=== PATIENT | female | born 1995 | race Caucasian/White ===

== ENCOUNTER 2019-03-26 08:19 | Inpatient (IN) | payer OTHER ==
[2019-03-26] MEDS ORDERED: PROMETHAZINE 25 MG/ML VIAL IV PRN (08:55)
[2019-03-26] MEDS ORDERED: Ringers Lactate 1,000 ML IV PRN (08:55)
[2019-03-26] MEDS ORDERED: METHYLERGONOVINE 0.2MG/ML AMP IM PRN (08:55)
[2019-03-26] MEDS ORDERED: BUTORPHANOL 1 MG/ML INJ IV PRN (08:55)
[2019-03-26] MEDS ORDERED: miSOPROStol 100 MCG TAB VAG SCH ×3 (09:00→21:00)
[2019-03-26] MEDS ORDERED: Ringers Lactate 1,000 ML IV SCH (09:00)
[2019-03-26 09:40] LABS: Basophils % 0.3 % (0-1.3); Hematocrit 39.1 % (36.0-45.0); Lymphocytes % 15.7 % (15.3-44.8); MPV 10.4 fL (7.6-11.3); RBC Red Blood Cell Count 4.59 M/uL (3.86-4.86)
[2019-03-26 09:41] LABS: Urine Appearance CLEAR; Urine Bilirubin NEGATIVE (NEG); Urine Blood NEGATIVE (NEG); Urine Color YELLOW; Urine Glucose NEGATIVE (NEG); Urine Microscopic Reflex NO UMIC; Urine Protein NEGATIVE (NEG); Urine Specific Gravity <=1.005 (1.005-1.030); Urine Urobilinogen 0.2 mg/dL (0.2-1.0); Urine pH 7.5 (5.0-7.0)
[2019-03-26 10:14] VITALS: BMI 42.0
--- NOTE | 2019-03-26 13:55 | PREOPHP ---
Date of Admission: 03/26/2019 23-year-old primigravida, at 39 weeks and 6 days according to best estimates, came in last night with complaint of decreased or absent movement. Ultrasound was performed for 30 minutes and showed no cardiac activity. Patient had normal movement counts every night until then. Had been off ered induction early in the week and declined. Vital signs are all stable. Cervix is 1 to 1.5 cm, 5 0% effaced, vertex is applied. Options discussed including expectant management versus Cytotec for c ervical ripening and labor induction. Numerous family members present. Patient and her have decided to proceed with Cytotec induction. This has been discussed several times in the office and again today. We will start with 50 mcg every 6 hours for a total of 3-4 doses depending upon respons e. She knows that there are risks associated with induction including the possibility for . This has been also discussed numerous times. Patient is beta strep positive. So, we will give pen icillin prophylaxis. Rh positive, immune to rubella. Patient may be request epidural during the pro cedure. She will of course wait and see how she feels. No other significant changes from antepartum evaluation. Family knows that the baby will have to be buried or cremated. They are aware of that situation. Anticipate delivery sometime later today. CUONG/LINDA Voice ID: [id number]
--- NOTE | 2019-03-26 14:01 | PN ---
IV has been started. Cytotec 50 mcg placed intravaginally. Full discussion. We will use 50 mcg q.6 hours for at least 3 doses. She knows she can have IV analgesics higher than the normal range becau se of the intrauterine demise and she knows also that she is allowed to get an epidural once th e process gets more active. She will of course aside that for herself. CUONG/LINDA Voice ID: [id number] Report ID: [id number]
[2019-03-26] MEDS ORDERED: ROPIVACAINE HCL 0.2% 20ML AMP IV ONE (17:42)
[2019-03-26] MEDS ORDERED: FENTANYL CITR 100 MCG/2 ML IV ONE (17:42)
[2019-03-26] MEDS ORDERED: ROPIVACAINE HCL 100 ML IV PRN (17:42)
[2019-03-26] MEDS ORDERED: PENICILLIN G POT 5 MU/100 ML VIAL IV SCH (19:00)
[2019-03-26 21:20] LABS: RPR (Rapid Plasma Reagin) NON-REACT (NON-REACT)
--- NOTE | 2019-03-26 21:24 | PN ---
A second dose of 50 mcg of Cytotec has been inserted. Patient is really not having any contractions to speak of. We will decrease the interval to q.4 hours to try to elicit more uterine activity. Stephanie gibson discussion with patient and family. CUONG/LINDA Voice ID: [id number] Report ID: [id number]
[2019-03-26] MEDS ORDERED: ZOLPIDEM TARTRATE 10 MG TABLET PO PRN (22:40)
[2019-03-26] MEDS ORDERED: ZOLPIDEM TARTRATE 5 MG TABLET ONE (22:42)
[2019-03-26] MEDS ORDERED: PENICILLIN 2.5 MU in NA CHLORIDE 0.9% 100 ML IV SCH (23:00)
[2019-03-27] MEDS ORDERED: OXYTOCIN/LR 20 UNIT/1,000 ML BAG IV SCH ×2 (04:00→16:00)
[2019-03-27] MEDS ORDERED: OXYTOCIN/LR 20 UNIT/1,000 ML BAG IV ONE (04:09)
[2019-03-27] MEDS ORDERED: ROPIVACAINE HCL 0 ML ONE (08:30)
[2019-03-27] MEDS ORDERED: FENTANYL CITR 100 MCG/2 ML IV ONE (08:46)
[2019-03-27] MEDS ORDERED: METHYLERGONOVINE 0.2MG/ML AMP IM ONE (13:07)
[2019-03-27] MEDS ORDERED: LIDOCAINE 1% MPF 30 ML VIAL ONE (13:08)
[2019-03-27] MEDS ORDERED: Oxycodone HCl/Acetaminophen 1 TAB TAB PO PRN (15:41)
[2019-03-27] MEDS ORDERED: ACETAMINOPHEN 500 MG TAB PO PRN (15:41)
[2019-03-27] MEDS ORDERED: DIPHENHYDRAMINE 25 MG TAB/CAP PO PRN (15:41)
[2019-03-27] MEDS ORDERED: DOCUSATE NA/SENNA CONC 1 TAB PO PRN (15:41)
[2019-03-27] MEDS ORDERED: IBUPROFEN 200 MG TAB PO PRN (15:41)
[2019-03-27] MEDS ORDERED: BISACODYL 10 MG RECTAL SUPP RECT PRN (15:41)
[2019-03-27] MEDS: Oxycodone HCl/Acetaminophen 1 TAB TAB PO PRN (17:38)
[2019-03-27] MEDS ORDERED: ZOLPIDEM TARTRATE 10 MG TABLET PO PRN (21:22)
--- NOTE | 2019-03-28 00:59 | OP ---
Surgeon: Chet Cortez MD A 23-year-old primigravida at 40 weeks by best estimates was diagnosed with intrauterine demise , came in Thursday morning for Cytotec after thorough discussion. RH positive. Immune to Rubella. Positive beta strep screen. Had a total of 4 doses of Cytotec and then Pitocin was started. This mo rning rupture of membranes was performed. Patient went to a more active labor. She received Stadol initially IV and then requested and received epidural anesthesia which gave good effect in the remain manuel of labor and delivery. Second stage of about 20-25 minutes. Spontaneous vaginal delivery of an estimated 8 pound plus female, tight nuchal cord, stillborn. Repair of small first-degree laceration just inside the introitus with 2-0 chromic approximately 4 stitches running locked. Jorge nieto of the placenta, which was noted to be intact, calcified, but otherwise normal. Patient was given at least 2 doses of penicillin during the labor as she was beta strep positive and we wanted to make sure she does not develop endometriosis. Final Diagnoses: Intrauterine gestation, 40 weeks, stillborn diagnosed prior to admission. Cytotec for cervical ripening. Labor induction. Vaginal delivery. Epidural anesthesia. Tight nuchal cord as the most probable cause for stillborn. NBC/MODL Voice ID: [id number] Report ID: [id number]
--- NOTE | 2019-03-28 02:18 | OP ---
Surgeon: Chet Cortez MD A 23-year-old primigravida at 40 weeks by best estimate. Patient reported no activity to her m other who came in yesterday and was diagnosed with intrauterine demise, that was yesterday morn ing. DICTATION ENDS HERE CUONG/LINDA Voice ID: [id number] Report ID: [id number]
[2019-03-28] MEDS: Oxycodone HCl/Acetaminophen 1 TAB TAB PO PRN (08:42)
[2019-03-28 08:49] VITALS: BP 134/74; TEMP 97.7
--- NOTE | 2019-03-28 15:42 | PN ---
Intrauterine demise at 39 weeks according to day study, 40 weeks according to the first ultraso und. The patient has had Cytotec inserted according to family rupture of membranes occurred spontane ously this morning around 6 a.m. The patient is now 3 cm, 70% to 80% effaced, vertex, -1 station. S he has had 3 doses of Stadol, but is alert. We will give her another dose at her request. The patie nt will probably choose epidural anesthesia, but at this point is still using the breathing technique s to best advantage. She is beta strep positive and is on antibiotics at this point. This is more t o prevent any type of endometritis in patient since she have a nonviable . Anticipate more rap id progress from this point forward. CUONG/LINDA Voice ID: [id number] Report ID: [id number]
--- NOTE | 2019-03-29 05:36 | DS ---
Date of Discharge: 03/28/2019 A 23-year-old primigravida, noted to have intrauterine demise prior to admission. Cytotec for cervical ripening followed by labor induction, vaginal delivery of an estimated 8 pounds plus female. Nuchal cord tightly x1, first-degree laceration repaired with 2-0 chromic for running lock stitches , epidural anesthesia. Schultze delivery of the placenta, which was inspected and noted to be calcif ied, but otherwise intact and normal. Penicillin prophylaxis during the labor at least 2-3 times. P ostpartum afebrile, ambulating and voiding. Lochia is normal. She will be dismissed later this morn ing to report back to my office in 6 weeks for followup, to report any temperature elevation of 100 d egrees or greater, severe pain, heavy bleeding, or any other type of abnormalities. She is given tra madol at her request for cramping. Final Diagnoses: 40 weeks at the time of delivery of intrauterine stillborn female. Epidural anesth esia. Tight nuchal cord. Penicillin prophylaxis. CUONG/LINDA Voice ID: [id number] Report ID: [id number]
[2019-03-30 05:29] LABS: HBsAG Nonreactive (Nonreactive)
== END 2019-03-28 11:50 | disposition home or self-care (01) | DRG 807 ==
LOC: L&D 08:19 → 2ND-WC 08:24
PROVIDERS: ADMIT Specialist; ATTEND Specialist
PROC: 3E0P7VZ Introduction of Hormone into Female Reproductive, Via Natural or Artificial Opening (ICD-10-PCS; 2019-03-26)
PROC: 10E0XZZ Delivery of Products of Conception, External Approach (ICD-10-PCS; principal; 2019-03-27)
PROC: 0HQ9XZZ Repair Perineum Skin, External Approach (ICD-10-PCS; 2019-03-27)
DX: O36.4XX0 Maternal care for intrauterine death, not applicable or unspecified (principal); Z37.1 Single stillbirth; O69.81X0 Labor and delivery complicated by cord around neck, without compression, not applicable or unspecified; O99.824 Streptococcus B carrier state complicating childbirth; O70.0 First degree perineal laceration during delivery; Z3A.40 40 weeks gestation of pregnancy
CPT/HCPCS: 36415; 76819; 81003; 85025; 86592; 86901; 87340; 88307; J0595; J2210; J2550; J2590; J3010; J7120

== ENCOUNTER 2019-10-16 15:52 | Inpatient (IN) | payer OTHER, SELFPAY ==
[2019-10-16] MEDS ORDERED: ONDANSETRON 4 MG/2 ML VIAL ONE (16:18)
[2019-10-16] MEDS ORDERED: NA CHLORIDE 0.9% 1,000 ML ONE (16:19)
[2019-10-16 16:53] LABS: Absolute Lymphocytes (CBC) 1.1 K/uL (0.7-4.9); Basophils % 0.1 % (0-1.3); Hematocrit 42.6 % (36.0-45.0); Lymphocytes % 5.6 % (15.3-44.8); MPV 9.8 fL (7.6-11.3); RBC Red Blood Cell Count 5.06 M/uL (3.86-4.86)
[2019-10-16 16:54] LABS: Urine Specific Gravity 1.015 (1.005-1.030)
[2019-10-16 16:54] LABS: Urine Blood 1+ (NEG); Urine Glucose NEGATIVE (NEG); Urine Protein 3+ (NEG); Urine Specific Gravity 1.015 (1.005-1.030); Urine pH 5.5 (5.0-7.0)
[2019-10-16 16:57] LABS: Potassium 3.4 mmol/L (3.5-5.1)
--- NOTE | 2019-10-16 17:01 | RAD REPORT ---
EXAM DESCRIPTION: CT - Abdomen Pelvis W Contrast - 10/16/2019 4:45 pm CLINICAL HISTORY: Abdominal pain COMPARISON: none. TECHNIQUE: Computed axial tomography of the abdomen pelvis was obtained. 100 cc Isovue-300 was admin istered intravenously. Oral contrast was not requested which limits evaluation of bowel. All CT scans are performed using dose optimization technique as appropriate and may include automated exposure control or mA/KV adjustment according to patient size. FINDINGS: Moderate small low-density areas are scattered throughout the right kidney reaching the pe riphery. Mild small low-density areas are present within the left kidney reaching the periphery. The liver, spleen, pancreas, and adrenals appear unremarkable. There is no evidence of diverticulitis. Normal appendix 4 x 2 centimeter fluid collection right pelvis abuts the superior aspect of the uterus IMPRESSION: Moderate right and mild left pyelonephritis 4 x 2 centimeter fluid collection are right pelvis probably fluid within unopacified small bowel. Rig ht hydrosalpinx or complex right adnexal mass considered less likely. This can be re-evaluated with a non emergent pelvic ultrasound
--- NOTE | 2019-10-16 17:19 | EDPHYS ---
Physician Documentation [facility] Name: Sue Ponce Age: 23 yrs Sex: Female : 1995 Arrival Date: 10/16/2019 Time: 15:55 Bed 2 Private MD: ED Physician Claudio Suggs HPI: 10/15 16:17 This 23 yrs old Female presents to ER via Ambulatory with complaints of kb Fever, Vomiting. 16:17 The patient presents with abdominal pain right lower quadrant. Onset: The kb symptoms/episode began/occurred 4 day(s) ago. The symptoms do not radiate. Associated signs and symptoms: Pertinent positives: nausea and vomiting, fever. The symptoms are described as constant. Modifying factors: The symptoms are alleviated by nothing, the symptoms are aggravated by movement. Severity of pain: At its worst the pain was severe yesterday, in the emergency department the pain has improved moderately. The patient has not experienced similar symptoms in the past. The patient has not recently seen a physician. Pt reports fever and vomiting for 4 days, unable to tolerate anything by mouth. States she has had RLQ pain as well that was the worst yesterday and now it is very mild. Reports any movement would cause pain to abd yesterday. . 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 - Social history:: Smoking status: Patient denies any tobacco usage or history of. ROS: 16:16 ENT: Negative for injury, pain, and discharge, Neck: Negative for injury, pain, and kb swelling, Cardiovascular: Negative for chest pain, palpitations, and edema, Respiratory: Negative for shortness of breath, cough, wheezing, and pleuritic chest pain, Back: Negative for injury and pain, : Negative for injury, bleeding, discharge, and swelling, MS/Extremity: Negative for injury and deformity, Skin: Negative for injury, rash, and discoloration, Neuro: Negative for headache, weakness, numbness, tingling, and seizure. 16:16 Constitutional: Positive for fever, Negative for body aches, chills, fatigue, malaise, poor PO intake, weight loss. 16:16 Abdomen/GI: Positive for abdominal pain, nausea and vomiting, Negative for diarrhea, constipation, abdominal cramps, abdominal distension, anorexia. Exam: 16:16 Constitutional: This is a well developed, well nourished patient who is awake, alert, kb and in no acute distress. Head/Face: Normocephalic, atraumatic. Neck: Trachea midline, no thyromegaly or masses palpated, and no cervical lymphadenopathy. Supple, full range of motion without nuchal rigidity, or vertebral point tenderness. No Meningismus. Chest/axilla: Normal chest wall appearance and motion. Nontender with no deformity. No lesions are appreciated. Cardiovascular: Tachycardic rate, Regular rhythm with a normal S1 and S2. No gallops, murmurs, or rubs. Normal PMI, no JVD. No pulse deficits. Respiratory: Lungs have equal breath sounds bilaterally, clear to auscultation and percussion. No rales, rhonchi or wheezes noted. No increased work of breathing, no retractions or nasal flaring. Back: No spinal tenderness. No costovertebral tenderness. Full range of motion. Skin: Warm, dry with normal turgor. Normal color with no rashes, no lesions, and no evidence of cellulitis. MS/ Extremity: Pulses equal, no cyanosis. Neurovascular intact. Full, normal range of motion. Neuro: Awake and alert, GCS 15, oriented to person, place, time, and situation. Cranial nerves II-XII grossly intact. Motor strength 5/5 in all extremities. Sensory grossly intact. Cerebellar exam normal. Normal gait. 16:16 Abdomen/GI: Inspection: obese Bowel sounds: normal, in all quadrants, Palpation: soft, in all quadrants, mild abdominal tenderness, in the right lower quadrant. Vital Signs: 15:58 BP 145 / 105; Pulse 156; Resp 22 S; Temp 99.8(O); Pulse Ox 100% on R/A; aa5 17:00 BP 121 / 86; Pulse 113; Resp 16 S; Pulse Ox 98% on R/A; ca1 18:00 BP 124 / 83; Pulse 98; Resp 18 S; Temp 99.4(O); Pulse Ox 98% on R/A; ca1 19:12 BP 134 / 78; Pulse 86; Resp 16 S; Pulse Ox 96% on R/A; ca1 19:41 BP 125 / 76; Pulse 88; Resp 18 S; Pulse Ox 98% on R/A; ca1 MDM: 16:01 Patient medically screened. kb 16:15 Data reviewed: vital signs, nurses notes. Data interpreted: Pulse oximetry: on room air kb is 100 %. Interpretation: normal. 17:12 Counseling: I had a detailed discussion with the patient and/or guardian regarding: the kb historical points, exam findings, and any diagnostic results supporting the discharge/admit diagnosis, lab results, radiology results, the need for further work-up and treatment in the hospital. 17:17 Physician consultation: Prince Jai ALLAN was contacted at 17:17, regarding admission, kb to the medical/surgical unit. patient's condition, and will see patient in ED, shortly, wants zosyn instead of rocephin. 10/15 16:02 Order name: Basic Metabolic Panel; Complete Time: 16:58 kb 10/15 16:02 Order name: CBC with Diff; Complete Time: 16:57 kb 10/15 16:37 Order name: Urine Dipstick--Ancillary (enter results); Complete Time: 16:55 tt3 10/15 16:38 Order name: Urine --Ancillary (enter results); Complete Time: 16:55 tt3 10/15 17:05 Order name: Urine Microscopic Only 10/15 17:06 Order name: Urine Microscopic Only; Complete Time: 17:37 EDMS 10/15 16:02 Order name: CT Abd/Pelvis - IV Contrast Only; Complete Time: 17:03 kb 10/15 17:08 Order name: Urine Culture 10/15 17:15 Order name: Blood Culture Adult (2) 10/15 17:15 Order name: Lactate; Complete Time: 18:17 kb 10/15 17:15 Order name: Procalcitonin; Complete Time: 18:36 kb 10/15 16:02 Order name: IV Saline Lock; Complete Time: 16:37 kb 10/15 16:02 Order name: Labs collected and sent; Complete Time: 16:37 kb 10/15 16:02 Order name: Urine Dipstick-Ancillary (obtain specimen); Complete Time: 16:37 kb Administered Medications: 16:35 Drug: NS 0.9% 1000 ml Route: IV; Rate: 1000 ml; Site: right antecubital; ca1 17:50 Follow up: Response: No adverse reaction; IV Status: Completed infusion ca1 16:36 Drug: Zofran (Ondansetron) 4 mg Route: IVP; Site: right antecubital; ca1 17:15 Follow up: Response: No adverse reaction; Nausea is decreased; Vomiting decreased ca1 17:15 CANCELLED (Physician Discretion): Rocephin 1 grams IV at calculated rate once; Given kb slow IV push per pharmacy instructions 17:54 Drug: Zosyn 3.375 grams Route: IVPB; Infused Over: 60 mins; Site: right antecubital; ca1 19:13 Follow up: Response: No adverse reaction; IV Status: Completed infusion ca1 Disposition: 10/16 07:19 Co-signature as Attending Physician, Claudio Suggs MD. rn Disposition: 10/16/19 17:18 Hospitalization ordered by Prince Jai for Observation. Preliminary diagnosis are Acute tubulo-interstitial nephritis - bilateral, Elevated white blood cell count, Dehydration. - Bed requested for Telemetry/MedSurg (observation). - Status is Observation. mg2 - Condition is Stable. - Problem is new. - Symptoms are unchanged. Signatures: Dispatcher [employer] EDNV Laila Sellers, JAS-C OPTIONS TRADER-Ckb Claudio Suggs MD MD rn Calderon, Audri, RN RN aa5 Uli Saenz RN RN mg2 Penelope Vinsno RN RN ca1 Gilmer, Freddy tt3 Corrections: (The following items were deleted from the chart) 10/15 17:15 17:05 Rocephin 1 grams IV at calculated rate once; Given slow IV push per pharmacy kb instructions ordered. kb 18:46 17:18 Hospitalization Ordered by Prince Jai ALLAN for Observation. Preliminary tt3 diagnosis is Acute tubulo-interstitial nephritis - bilateral; Elevated white blood cell count; Dehydration. Bed requested for Telemetry/MedSurg (observation). Status is Observation. Condition is Stable. Problem is new. Symptoms are unchanged. kb 20:10 18:46 10/16/2019 17:18 Hospitalization Ordered by Prince Jai ALLAN for Observation. mg2 Preliminary diagnosis is Acute tubulo-interstitial nephritis - bilateral; Elevated white blood cell count; Dehydration. Bed requested for Telemetry/MedSurg (observation). Status is Observation. Condition is Stable. Problem is new. Symptoms are unchanged. tt3
--- NOTE | 2019-10-16 17:19 | ER ---
Nurse's Notes [facility] Name: Sue Ponce Age: 23 yrs Sex: Female : 1995 Arrival Date: 10/16/2019 Time: 15:55 Bed 2 Private MD: Diagnosis: Acute tubulo-interstitial nephritis-bilateral;Elevated white blood cell count;Dehydration Presentation: 10/15 15:58 Chief complaint: Patient states: RLQ pain, nausea, vomiting, and fever up to 100.9F aa5 that began 4 days ago. 15:58 Coronavirus screen: Patient denies a cough. Patient denies shortness of breath or aa5 difficulty breathing. Patient reports a measured and/or subjective temperature greater than 100.4F. Patient denies travel on a cruise ship or to a country the [facility] [place] currently [place] as an affected area. Patient denies contact with known and/or suspected case of COVID-19. Ebola Screen: Patient negative for fever greater than or equal to 101.5 degrees Fahrenheit, and additional compatible Ebola Virus Disease symptoms. Risk Assessment: Do you want to hurt yourself or someone else? Patient reports no desire to harm self or others. Onset of symptoms was September 2019. 15:58 Acuity: CINDY 2 aa5 15:58 Method Of Arrival: Ambulatory aa5 15:58 Initial Sepsis Screen: Does the patient meet any 2 criteria? RR > 20 per min. HR > 90 aa5 bpm. Yes Does the patient have a suspected source of infection? Yes:. 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 - Social history:: Smoking status: Patient denies any tobacco usage or history of. Screenin:02 Abuse screen: Denies threats or abuse. Denies injuries from another. Nutritional ca1 screening: No deficits noted. Tuberculosis screening: No symptoms or risk factors identified. Fall Risk IV access (20 points). Assessment: 16:02 General: Appears in no apparent distress. comfortable, Behavior is calm, cooperative, ca1 appropriate for age. General: Reports fever for > 3 days. Pain: Complains of pain in right lower quadrant Pain currently is 6 out of 10 on a pain scale. Pain began 2-3 days ago. Is intermittent. Neuro: Level of Consciousness is awake, alert, obeys commands, Oriented to person, place, time, situation, Appropriate for age. Cardiovascular: Heart tones S1 S2 present. Respiratory: Airway is patent Respiratory effort is even, unlabored, Respiratory pattern is regular, symmetrical, Breath sounds are clear bilaterally. GI: Abdomen is round non-distended, Bowel sounds present X 4 quads. Abd is soft and non tender X 4 quads. Reports nausea, vomiting. : No signs and/or symptoms were reported regarding the genitourinary system. EENT: No signs and/or symptoms were reported regarding the EENT system. Derm: Skin is intact, is healthy with good turgor, Skin is pink, warm \T\ dry. Musculoskeletal: Circulation, motion, and sensation intact. Capillary refill < 3 seconds. 16:37 Reassessment: PT to CT. ca1 17:00 Reassessment: Patient appears in no apparent distress at this time. Patient and/or ca1 family updated on plan of care and expected duration. Pain level reassessed. Patient is alert, oriented x 3, equal unlabored respirations, skin warm/dry/pink. 18:00 Reassessment: Patient appears in no apparent distress at this time. Patient and/or ca1 family updated on plan of care and expected duration. Pain level reassessed. Patient is alert, oriented x 3, equal unlabored respirations, skin warm/dry/pink. 19:05 Reassessment: Patient appears in no apparent distress at this time. Patient and/or ca1 family updated on plan of care and expected duration. Pain level reassessed. Patient is alert, oriented x 3, equal unlabored respirations, skin warm/dry/pink. 19:41 Reassessment: Patient appears in no apparent distress at this time. Patient is alert, ca1 oriented x 3, equal unlabored respirations, skin warm/dry/pink. Vital Signs: 15:58 BP 145 / 105; Pulse 156; Resp 22 S; Temp 99.8(O); Pulse Ox 100% on R/A; aa5 17:00 BP 121 / 86; Pulse 113; Resp 16 S; Pulse Ox 98% on R/A; ca1 18:00 BP 124 / 83; Pulse 98; Resp 18 S; Temp 99.4(O); Pulse Ox 98% on R/A; ca1 19:12 BP 134 / 78; Pulse 86; Resp 16 S; Pulse Ox 96% on R/A; ca1 19:41 BP 125 / 76; Pulse 88; Resp 18 S; Pulse Ox 98% on R/A; ca1 ED Course: 15:55 Patient arrived in ED. as 15:57 Laila Sellers FNP-C [facility]. kb 15:57 Claudio Suggs MD is Attending Physician. kb 15:57 Arm band placed on. aa5 16:02 Patient has correct armband on for positive identification. Placed in gown. Bed in low ca1 position. Call light in reach. Side rails up X 1. Pulse ox on. NIBP on. Warm blanket given. 16:03 Triage completed. aa5 16:07 Penelope Vinson, FELICITY is Primary Nurse. ca1 16:34 No provider procedures requiring assistance completed. Initial lab(s) drawn, by ks, ca1 sent to lab. Urine collected: clean catch specimen, clear. Inserted saline lock: 20 gauge in right antecubital area, using aseptic technique. Blood collected. 16:44 CT completed. Patient tolerated procedure well. Patient moved back from CT. bq 16:46 CT Abd/Pelvis - IV Contrast Only In Process Unspecified. EDMS 17:18 Prince Vergara MD is Hospitalizing Provider. kb 17:53 Inserted saline lock: 20 gauge in left antecubital area, using aseptic technique. Blood eb collected. 17:54 Procalcitonin Sent. eb 17:54 Lactate Sent. eb 17:54 Blood Culture Adult (2) Sent. eb 17:54 Urine Culture Sent. eb 17:55 Urine Microscopic Only Sent. eb 19:41 Patient admitted, IV remains in place. ca1 Administered Medications: 16:35 Drug: NS 0.9% 1000 ml Route: IV; Rate: 1000 ml; Site: right antecubital; ca1 17:50 Follow up: Response: No adverse reaction; IV Status: Completed infusion ca1 16:36 Drug: Zofran (Ondansetron) 4 mg Route: IVP; Site: right antecubital; ca1 17:15 Follow up: Response: No adverse reaction; Nausea is decreased; Vomiting decreased ca1 17:15 CANCELLED (Physician Discretion): Rocephin 1 grams IV at calculated rate once; Given kb slow IV push per pharmacy instructions 17:54 Drug: Zosyn 3.375 grams Route: IVPB; Infused Over: 60 mins; Site: right antecubital; ca1 19:13 Follow up: Response: No adverse reaction; IV Status: Completed infusion ca1 Outcome: 17:18 Decision to Hospitalize by Provider. kb 19:42 Admitted to Med/surg accompanied by tech, via wheelchair, room 228, with chart, Report ca1 called to FELICITY Brewer 19:42 Condition: stable 19:42 Instructed on the need for admit. 20:10 Patient left the ED. mg2 Signatures: Dispatcher [employer] EDMS Laila Sellers, VESSEL TRAFFIC OFFICER-C VESSEL TRAFFIC OFFICER-CkLesly Goncalves Amelia as Calderon, Audri, RN RN aa5 Rosy Bellamy Michele, RN RN mg2 Penelope Vinson RN RN ca1
[2019-10-16 17:34] LABS: Urine Bacteria 20-50 /HPF (<20); Urine Culture Reflex Order NOT NEEDED
--- NOTE | 2019-10-16 17:45 | P.HP ---
Certification for Inpatient Patient admitted to: Inpatient With expected LOS: >2 Midnights Practitioner: I am a practitioner with admitting privileges, knowledge of patient current condition, hospital course, and medical plan of care. Services: Services provided to patient in accordance with Admission requirements found in Title 42 Section 412.3 of the Code of Federal Regulations Patient History Date of Service: 10/16/19 Reason for admission: abdominal pain History of Present Illness: Patient is 23 year old female who presents to the ER with a 4-day history of daily fever spikes, vomiting and right lower quadrant abdominal. She was found to have bilateral pyelonephritis on CT scan. In addition, there was also pelvic fluid. She has a hx of vaginal delivery 7 months ago. Unfortunately, the baby due to complications related to . Otherwise, patient is generally healthy without chronic co-morbidities. She is not taking any medications at home. Allergies No Known Allergies Allergy (Unverified 03/15/19 16:46) Home Medications: Pnv Cmb#95/Ferrous Fumarate/FA [ Tablet] 1 each PO DAILY 03/26/19 Tramadol HCl [Ultram] 50 mg PO Q4HR #15 tablet 03/28/19 - Social History Alcohol use: No CD- Drugs: No Caffeine use: Yes Review of Systems 10-point ROS is otherwise unremarkable Physical Examination - Physical Exam General: Alert, In no apparent distress, Cooperative, Obese HEENT: Atraumatic, Normocephalic, EOMI Neck: Supple Respiratory: Clear to auscultation bilaterally, Normal air movement Cardiovascular: No edema, Normal pulses, Regular rate/rhythm, Normal S1 S2 Musculoskeletal: No clubbing, No swelling, No contractures, No erythema, No tenderness, No warmth Integumentary: No rashes, No breakdown, No significant lesion, No tenderness/swelling, No erythema, No warmth, No cyanosis Neurological: Normal speech, Sensation intact, Normal affect - Studies Laboratory Data (last 24 hrs) 10/16/19 16:34: WBC 19.6 H, Hgb 14.5, Hct 42.6, Plt Count 223 10/16/19 16:34: Sodium 135 L, Potassium 3.4 L, BUN 15, Creatinine 1.13, Glucose 127 H Assessment and Plan - Problems (Diagnosis) (1) Sepsis Current Visit: Yes Status: Acute (2) Pyelonephritis Current Visit: Yes Status: Acute (3) Pelvic fluid collection Current Visit: Yes Status: Acute - Plan Assessment A generally healthy 23 year old female admitted with sepsis secondary to pyelonephritis. CT A/P also captured pelvic fluid collection Sepsis Bilateral pyelonephritis Pelvic fluid collection PLAN: Admit inpatient Start zosyn and LR Pelvic ultrasound Follow up urine and blood cultures PRN zofran for nausea OK for clear liquid diet if tolerated - Advance Directives Does patient have a Living Will: No Does patient have a Durable POA for Healthcare: No
[2019-10-16] MEDS ORDERED: PIPER/TAZO/NS 3.375gm 3.375 GM/100 ML BAG ONE (17:54)
[2019-10-16] MEDS ORDERED: ONDANSETRON 4 MG/2 ML VIAL IV PRN (19:45)
[2019-10-16] MEDS: PIPER/TAZO/NS 3.375gm 3.375 GM/100 ML BAG IVPB SCH (19:45)
[2019-10-16] MEDS ORDERED: POTASSIUM CL 40 MEQ in NA CHLORIDE 0.9% 500 ML IV SCH (19:45)
[2019-10-16 20:20] VITALS: O2SAT 98
[2019-10-16 20:28] VITALS: BMI 36.4
[2019-10-16] MEDS ORDERED: TRAMADOL HCL 50 MG TAB PO SCH (21:00)
[2019-10-16] MEDS ORDERED: HYDROCODONE/APAP 7.5/325 MG TAB PO PRN (21:16)
[2019-10-16] MEDS ORDERED: NA CHLORIDE 0.9% 250 ML ONE (21:25)
[2019-10-16] MEDS: Ringers Lactate 1,000 ML IV SCH (21:30)
[2019-10-16] MEDS: KCL 20 MEQ/100 mL IVPB 20 MEQ/100 ML BAG IV SCH (21:30)
[2019-10-16] MEDS ORDERED: TRAMADOL HCL 50 MG TAB PO PRN (21:46)
[2019-10-17] MEDS ORDERED: PIPERACIL/TAZO 3.375 GM VIAL IV ONE (00:55)
[2019-10-17] MEDS: KCL 20 MEQ/100 mL IVPB 20 MEQ/100 ML BAG IV SCH (00:57)
[2019-10-17] MEDS ORDERED: NA CHLORIDE 0.9% 100 ML ONE (00:58)
[2019-10-17] MEDS ORDERED: NA CHLORIDE 0.9% 250 ML ONE (00:59)
[2019-10-17] MEDS ORDERED: PIPER/TAZO/NS 3.375gm 3.375 GM/100 ML BAG ONE (04:41)
[2019-10-17] MEDS: Ringers Lactate 1,000 ML IV SCH ×2 (05:17→11:45)
[2019-10-17] MEDS: PIPER/TAZO/NS 3.375gm 3.375 GM/100 ML BAG IVPB SCH ×2 (05:18)
[2019-10-17 05:51] LABS: Magnesium 2.3 mg/dL (1.8-2.4); Potassium 3.7 mmol/L (3.5-5.1)
[2019-10-17 06:18] LABS: Absolute Lymphocytes (CBC) 2.1 K/uL (0.7-4.9); Basophils % 0.3 % (0-1.3); Hematocrit 35.5 % (36.0-45.0); Lymphocytes % 18.5 % (15.3-44.8); MPV 9.7 fL (7.6-11.3); RBC Red Blood Cell Count 4.17 M/uL (3.86-4.86)
--- NOTE | 2019-10-17 07:36 | RAD REPORT ---
EXAM DESCRIPTION: US - Pelvis Complete - 10/17/2019 7:12 am CLINICAL HISTORY: Pelvic fluid COMPARISON: Abdomen Pelvis W Contrast dated 10/16/2019 TECHNIQUE: Transabdominal pelvic sonography was performed. FINDINGS: Transabdominal sonography shows normal sized uterus with no endometrial or myometrial abno rmality. No blood or abnormal fluid collection in the cul de sac. Both ovaries are identified and nor mal in size. Doppler evaluation shows normal blood flow in the ovarian stroma. Follicles are seen in each ovary. No abnormal fluid collections seen. The CT finding is believed to be summation effect of normal size fluid-filled small bowel loops abutting an isodense right ovary. No worrisome pelvic fluid collection is suspected after review of the CT study and evaluation of this ultrasound. IMPRESSION: Uterus and both ovaries show no suspicious findings. No abnormal fluid collections seen. Collective ultrasound and CT findings a not considered suspicious for an abnormal pelvic fluid collection.
[2019-10-17 08:39] VITALS: TEMP 97.6
[2019-10-17 11:00] LABS: Anisocytosis 1+; Blood Morphology Comment NOTED (NOT SEEN); Platelet Estimate ADEQ
[2019-10-17] MEDS ORDERED: PIPER/TAZO/NS 3.375gm 3.375 GM/100 ML BAG IVPB SCH (11:00)
[2019-10-17 12:09] VITALS: BP 127/60
--- NOTE | 2019-10-17 12:48 | P.DS ---
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 Mild small low-density areas are present within the left kidney reaching the periphery. The liver, spleen, pancreas, and adrenals appear unremarkable. There is no evidence of diverticulitis. Normal appendix 4 x 2 centimeter fluid collection right pelvis abuts the superior aspect of the uterus IMPRESSION: Moderate right and mild left pyelonephritis 4 x 2 centimeter fluid collection are right pelvis probably fluid within unopacified small bowel. Right hydrosalpinx or complex right adnexal mass considered less likely. This can be re-evaluated with a non emergent pelvic ultrasound Pelvic US: FINDINGS: Transabdominal sonography shows normal sized uterus with no endometrial or myometrial abnormality. No blood or abnormal fluid collection in the cul de sac. Both ovaries are identified and normal in size. Doppler evaluation shows normal blood flow in the ovarian stroma. Follicles are seen in each ovary. No abnormal fluid collections seen. The CT finding is believed to be summation effect of normal size fluid-filled small bowel loops abutting an isodense right ovary. No worrisome pelvic fluid collection is suspected after review of the CT study and evaluation of this ultrasound. IMPRESSION: Uterus and both ovaries show no suspicious findings. No abnormal fluid collections seen. Collective ultrasound and CT findings a not considered suspicious for an abnormal pelvic fluid collection. Medical problem list: Bilateral pyelonephritis Brief History of Present Illness: 23-year-old female presented to the emergency room with fever and right flank pain. Patient found to have bilateral pyelonephritis. Patient admitted for IV fluids and antibiotic therapy. Hospital Course: Patient presented with bilateral pyelonephritis. This was confirmed on CT scan. There was some question of fluid collection on CT scan. Pelvic ultrasound showed no indication of this. The patient was started on IV antibiotic therapy and fluids. Urine culture was positive for Gram negative rods. Patient responded well to antibiotics and IV fluids. No evidence of sepsis noted as pro calcitonin and lactic acid within normal range. At discharge she is without any nausea, vomiting or abdominal pain. No fever noted. Patient has tolerated her diet. At discharge patient will continue with Bactrim DS 1 pill twice daily for 14 days. A limited supply of tramadol 50 mg 1 pill twice daily as needed for pain will be provided. Recommend to recheck urine culture after that time to monitor resolution. Patient will need to establish care with a PCP within 1 week to follow up this hospitalization. Urine culture is pending at discharge. This can be followed up with her PCP or gynecology. Education on pyelonephritis and UTI prevention will be provided. Vital Signs/Physical Exam: Temp Pulse Resp BP Pulse Ox 97.6 F 75 18 127/60 96 10/17/19 08:00 10/17/19 12:00 10/17/19 12:00 10/17/19 12:00 10/17/19 12:00 General: Alert, In no apparent distress, Oriented x3, Cooperative HEENT: Atraumatic Neck: Supple Respiratory: Clear to auscultation bilaterally, Normal air movement Cardiovascular: Normal pulses, Regular rate/rhythm Gastrointestinal: Normal bowel sounds, Soft and benign, Non-distended, No tenderness, No masses, No rebound, No guarding Musculoskeletal: No erythema, No tenderness, No warmth Integumentary: No tenderness/swelling, No erythema, No warmth, No cyanosis Neurological: Normal speech, Normal strength at 5/5 x4 extr, Normal tone, Normal affect Laboratory Data at Discharge: WBC 11.1 K/uL (4.3-10.9) H D 10/17/19 05:24 Hgb 11.7 g/dL (12.0-15.0) L D 10/17/19 05:24 Hct 35.5 % (36.0-45.0) L D 10/17/19 05:24 Plt Count 185 K/uL (152-406) 10/17/19 05:24 Sodium 139 mmol/L (136-145) 10/17/19 05:24 Potassium 3.7 mmol/L (3.5-5.1) 10/17/19 05:24 BUN 11 mg/dL (7-18) 10/17/19 05:24 Creatinine 0.91 mg/dL (0.55-1.3) 10/17/19 05:24 Glucose 93 mg/dL (74-106) 10/17/19 05:24 Magnesium 2.3 mg/dL (1.8-2.4) 10/17/19 05:24 Home Medications: Smz./Tmp. [Bactrim Ds 800 MG/160 MG] 1 tab PO BID #28 tab 10/17/19 traMADol HCL [Ultram*] 50 mg PO BID PRN #10 tab 10/17/19 New Medications: Smz./Tmp. [Bactrim Ds 800 MG/160 MG] 1 tab PO BID #28 tab traMADol HCL [Ultram*] 50 mg PO BID PRN #10 tab PRN Reason: Pain Scale 5-7 (Moderate) Patient Discharge Instructions: 1. Recommend follow up with PCP to establish care and follow up this hospitalization. 2. Patient presented with bilateral pyelonephritis. This was confirmed on CT scan. There was some question of fluid collection on CT scan. Pelvic ultrasound showed no indication of this. The patient was started on IV antibiotic therapy and fluids. Urine culture was positive for Gram negative rods. Patient responded well to antibiotics and IV fluids. No evidence of sepsis noted as pro calcitonin and lactic acid within normal range. At discharge she is without any nausea, vomiting or abdominal pain. No fever noted. Patient has tolerated her diet. At discharge patient will continue with Bactrim DS 1 pill twice daily for 14 days. A limited supply of tramadol 50 mg 1 pill twice daily as needed for pain will be provided. Recommend to recheck urine culture after that time to monitor resolution. Patient will need to establish care with a PCP within 1 week to follow up this hospitalization. Urine culture is pending at discharge. This can be followed up with her PCP or gynecology. Education on pyelonephritis and UTI prevention will be provided. Diet: Regular Activity: Ad joe Time spent managing pt's care (in minutes): 55
== END 2019-10-17 14:15 | disposition home or self-care (01) | DRG 690 ==
LOC: ER 15:52 → ERHOLD 17:26 → 2ND 19:40
PROVIDERS: ADMIT Internal Medicine; ATTEND Family Medicine
DX: N12 Tubulo-interstitial nephritis, not specified as acute or chronic (principal); Z16.29 Resistance to other single specified antibiotic; B96.20 Unspecified Escherichia coli [E. coli] as the cause of diseases classified elsewhere; E66.9 Obesity, unspecified; Z79.899 Other long term (current) drug therapy; Z68.36 Body mass index [BMI] 36.0-36.9, adult
CPT/HCPCS: 36415; 74177; 76856; 80048; 81003; 81015; 81025; 83605; 83735; 84145; 85025; 87040; 87077; 87086; 87088; 87186; 96361; 96365; 96375; 99285; J2405; J2543; J7030; J7040; J7120; Q9967

== ENCOUNTER 2020-12-09 14:44 | Inpatient (IN) | payer OTHER ==
[2020-12-09] MEDS: PENICILLIN 2.5 MU in NA CHLORIDE 0.9% 100 ML IV SCH (09:00)
[~2020-12-09 14:44] MED LIST: BUTORPHANOL 1 MG/ML INJ IV PRN; CARBOPROST TROME 250 MCG/ML IM PRN; METHYLERGONOVINE 0.2MG/ML AMP IM PRN; PENICILLIN 5 MU in NA CHLORIDE 0.9% 100 ML IV ONE; PROMETHAZINE INJ 25 MG/ML AMP IM PRN; Ringers Lactate 1,000 ML IV PRN; miSOPROStoL 100 MCG TAB VAG PRN
[2020-12-09] MEDS ORDERED: OXYTOCIN/LR 20 UNIT/1,000 ML BAG IV SCH (15:00)
[2020-12-09] MEDS ORDERED: Ringers Lactate 1,000 ML IV SCH (15:00)
[2020-12-09] MEDS ORDERED: PENICILLIN G POT 5 MU/100 ML IVPB IV SCH (15:00)
[2020-12-09 16:05] LABS: Urine Appearance CLEAR (Clear); Urine Bilirubin NEGATIVE (Negative); Urine Blood NEGATIVE (Negative); Urine Color YELLOW (Yellow); Urine Glucose TRACE (Negative); Urine Protein NEGATIVE (Negative); Urine Specific Gravity <=1.005 (1.005-1.030); Urine Urobilinogen 0.2 mg/dL (0.2-1.0)
[2020-12-09 16:08] LABS: Absolute Lymphocytes (CBC) 2.6 K/uL (0.7-4.9); Basophils % 0.2 % (0-1.3); Hematocrit 37.7 % (36.0-45.0); Lymphocytes % 16.8 % (15.3-44.8); MPV 10.1 fL (7.6-11.3)
[2020-12-09 16:11] VITALS: BMI 39.6
[2020-12-09 16:39] LABS: Urine Microscopic Reflex NO UMIC
--- NOTE | 2020-12-09 19:26 | PREOPHP ---
Date of Admission: 12/09/2020 History Of Present Illness: Sue Pike is a 24-year-old 2, para 0, first pregnan cy still born at approximately 40 weeks. The patient is now 39 weeks. We have discussed on numerous occasions induction. At this point, she wishes to proceed. Cytotec has been discussed, including r isk of side effects. The patient chose to wait for spontaneous labor on her first , which r esulted in stillborn at approximately 40 weeks. Family History: Father with hypertension. Mother with stomach ulcers. Father with diabetes. Fathe r with melanoma. Past Medical History: The patient has had anxiety problems in the past. Past Surgical History: No previous surgeries. Allergies: NO ALLERGIES. Medications: vitamins prior to admission. Social History: Does not smoke. Physical Examination: HEENT: Clear. Pupils equal, round, reactive to light and accommodation. Conjunctivae well perfused . No oral, lingual, buccal lesions. Chest and Lungs: Clear. Heart: Without murmurs, thrills, heaves, or rubs. Breasts: Without masses on previous visits. Abdomen: Term size. Baby is vertex, still at -1 to -2 station. Cervix is posterior, 1.5 to 2 cm, 5 0% effaced. Assessment And Plan: 50 mcg of Cytotec inserted. Six hours from now, we will decide whether to inse rt another 50 mcg, 25 mcg, or none depending upon what the situation is at that point. The plan is u p to 3 doses of Cytotec for ripening and induction tomorrow. Of course if the patient goes into good labor tonight, we may not need Pitocin. Full discussion on several visits prior to admission. CUONG/LINDA Voice ID: [id number]
[2020-12-10] MEDS: PENICILLIN 2.5 MU in NA CHLORIDE 0.9% 100 ML IV SCH (04:49)
[2020-12-10] MEDS ORDERED: FENTANYL CITR 100 MCG/2 ML IV ONE (05:47)
[2020-12-10] MEDS ORDERED: 0.2% ROPIVACAINE (200 MG/100 ML) BAG EP ONE (05:47)
[2020-12-10] MEDS ORDERED: ROPIVACAINE HCL 0.2% 20ML AMP EP ONE (05:48)
[2020-12-10] MEDS ORDERED: EPHEDRINE SULF 50 MG/ML VIAL IV STA (07:55)
--- NOTE | 2020-12-10 07:57 | PN ---
The patient has received 1 dose of Stadol at 3-4 cm, requested epidural anesthesia which has been acc omplished now. Patient is very comfortable. She is 4-1/2, rupture of membranes, clear fluid. After rupture membranes and had became better applied, she is now 5 cm, still about 60% effaced. Fluid wa s clear. She has had 1 dose of penicillin. Anticipate more rapid progress from this point. CUONG/LINDA Voice ID: [id number] Report ID: [id number]
[2020-12-10] MEDS ORDERED: EPINEPHrine 1 MG/10 ML SYR ONE (08:23)
--- NOTE | 2020-12-10 08:33 | PN ---
The patient is very comfortable. In fact, she cannot feel anything even she is having contractions. She can move her legs. We will adjust epidural as necessary when it comes time to push. She is now about 6 cm, almost 80% effaced. Baby is much better applied. I think we are getting ready to make more rapid progress. CUONG/LINDA Voice ID: [id number] Report ID: [id number]
[2020-12-10] MEDS ORDERED: METHYLERGONOVINE 0.2MG/ML AMP IM ONE (09:14)
[2020-12-10] MEDS ORDERED: BISACODYL 10 MG RECTAL SUPP RC PRN (10:37)
[2020-12-10] MEDS ORDERED: DOCUSATE NA/SENNA CONC 1 TAB PO PRN (10:37)
[2020-12-10] MEDS ORDERED: Oxycodone HCl/Acetaminophen 1 TAB TAB PO PRN ×2 (10:37)
[2020-12-10] MEDS ORDERED: DIPHENHYDRAMINE 25 MG TAB/CAP PO PRN (10:37)
[2020-12-10] MEDS ORDERED: ACETAMINOPHEN 500 MG TAB PO PRN (10:37)
[2020-12-10] MEDS ORDERED: OXYTOCIN/LR 20 UNIT/1,000 ML BAG IV SCH (11:00)
--- NOTE | 2020-12-10 19:54 | OP ---
Surgeon: Chet Cortez MD Sue Pike is a 24-year-old 2, para 0. First stillborn at approximatel y 40 weeks. The patient is 39 weeks, had Cytotec inserted last night and every 6 hours, went to a ry active labor, had Stadol IV, Phenergan IM x1, at 4 cm, requested and received epidural anesthesia, which gave excellent results during her rest of labor and delivery. Second stage of about 20 to 25 minutes. Spontaneous vaginal delivery of a 7 pounds 11 ounces male , Apgars 9 and 9, had cord around the shoulders and neck as in a harness, no problems. No episiotomy. No laceration. Schultze delivery of the placenta, was inspected and noted to be intact and normal. 300 cc or less blood los s. Rh positive. Immune to Rubella. Positive strep. The patient received 2 doses of penicillin dur ing the labor. Tolerated all procedures well. Final Diagnoses: Term intrauterine at 39 weeks, previous history of stillborn. Cytotec fo r labor induction. Vaginal delivery. Epidural anesthesia. Penicillin prophylaxis. JUAN AC/MODL Voice ID: [id number] Report ID: [id number]
[2020-12-10] MEDS: IBUPROFEN 600 MG TAB PO PRN (21:42)
[2020-12-10 23:26] LABS: RPR (Rapid Plasma Reagin) NON-REACT (NON-REACT)
[2020-12-11] MEDS: IBUPROFEN 600 MG TAB PO PRN (07:32)
[2020-12-11 07:55] VITALS: BP 122/61; TEMP 97
--- NOTE | 2020-12-11 22:58 | DS ---
Date of Discharge: 12/11/2020 Hospital Course: Sue Pike is a 24-year-old 2, para 0, history of full-term sti llborn 39 weeks, Cytotec was inserted that evening and during the night. Next day, she was in active labor. Rupture of membranes at approximately 4 cm. The patient went rapidly to complete. Second s tage of about 20 minutes. Spontaneous vaginal delivery of a 7 pounds 11 ounces male infant, Apgars 9 and 9. Shoulder type harness cord, but no signs of any problems with the baby. Schultze delivery o f the placenta. Estimated blood loss 300 cc or less. Penicillin prophylaxis x2 during the labor. T he patient is Rh positive, immune to rubella, negative COVID. ; afebrile, ambulating, and voiding. Lochia is normal. She will be dismissed later today to report back to my office in 6 weeks for followup to report any temperature elevation of 100 degrees or greater, severe pain, heavy bleed ing, or any other type of abnormalities. We will take Motrin for any discomfort she has. Back is a little sore from the epidural, otherwise no complaints or problems. Tdap again offered as it was off ered during the and again today. Final Diagnoses: Intrauterine gestation 39 weeks, Cytotec insertion 39 weeks 1 day, vaginal delivery , epidural anesthesia, penicillin prophylaxis, Tdap offered. CUONG/LINDA Voice ID: [id number] Report ID: [id number]
[2020-12-12 13:09] LABS: HBsAG Nonreactive (Nonreactive)
== END 2020-12-11 12:45 | disposition home health service (06) | DRG 807 ==
LOC: 2ND-WC 14:44
PROVIDERS: ADMIT Specialist; ATTEND Specialist
PROC: 10E0XZZ Delivery of Products of Conception, External Approach (ICD-10-PCS; principal; 2020-12-10)
PROC: 3E0DXGC Introduction of Other Therapeutic Substance into Mouth and Pharynx, External Approach (ICD-10-PCS; 2020-12-10)
PROC: 10907ZC Drainage of Amniotic Fluid, Therapeutic from Products of Conception, Via Natural or Artificial Opening (ICD-10-PCS; 2020-12-10)
DX: O99.824 Streptococcus B carrier state complicating childbirth (principal); Z37.0 Single live birth; Z3A.39 39 weeks gestation of pregnancy
CPT/HCPCS: 36415; 81003; 85025; 86592; 86901; 87340; J0171; J0595; J2210; J2540; J2550; J2590; J2795; J3010; J7120; U0003

== ENCOUNTER 2021-09-07 20:38 | Emergency (ER) | payer OTHER ==
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
[2021-09-08 07:02] VITALS: BP 126/60; TEMP 98.2; O2SAT 99
== END 2021-09-07 21:34 | disposition home or self-care (01) ==
LOC: ER 20:38
DX: M54.50 Low back pain, unspecified (principal); M62.830 Muscle spasm of back; V43.62XA Car passenger injured in collision with other type car in traffic accident, initial encounter; Y93.89 Activity, other specified; Y92.414 Local residential or business street as the place of occurrence of the external cause
CPT/HCPCS: 99281

== ENCOUNTER 2022-02-15 23:14 | Emergency (ER) | payer OTHER, SELFPAY ==
[2022-02-15] MEDS ORDERED: ONDANSETRON 4 MG (ODT) TAB ONE (23:39)
[2022-02-16 00:35] LABS: Urine Blood Negative (Negative); Urine Glucose Negative (Negative); Urine Protein 1+ (Negative)
[2022-02-16] MEDS ORDERED: ONDANSETRON 4 MG/2 ML VIAL ONE (00:41)
[2022-02-16] MEDS ORDERED: MORPHINE 4 MG/ML SYR ONE (00:41)
[2022-02-16] MEDS ORDERED: NA CHLORIDE 0.9% 1,000 ML ONE ×2 (00:42→02:43)
[2022-02-16] MEDS ORDERED: FAMOTIDINE 20 MG/2 ML VIAL IV ONE (00:42)
[2022-02-16 00:52] LABS: Hematocrit 39.3 % (36.0-45.0); Lymphocytes % 3.8 % (15.3-44.8); MCV 84.4 fL (80-100); MPV 9.5 fL (7.6-11.3); RBC Red Blood Cell Count 4.65 M/uL (3.86-4.86)
[2022-02-16 01:05] LABS: Urine Bacteria <20 /HPF (<20); Urine Mucus Slight /HPF (None Seen); Urine RBC <5 /HPF (None Seen)
[2022-02-16 01:11] LABS: Bilirubin Total 0.9 mg/dL (0.2-1.0); Potassium 3.9 mmol/L (3.5-5.1); Protein, Total 7.7 g/dL (6.4-8.2)
[2022-02-16 01:57] LABS: Blood Morphology Comment NOTED (NOT SEEN); Hypochromasia 1+; Platelet Estimate ADEQ; Stomatocytes 1+
--- NOTE | 2022-02-16 03:33 | EDPHYS ---
Physician Documentation [facility] Name: Sue Pike Age: 26 yrs Sex: Female : 1995 Arrival Date: 02/15/2022 Time: 23:18 Bed 16 Private MD: TY Physician Orlando Marion HPI: 02/16 02:29 This 26 yrs old Female presents to ER via Ambulatory with complaints of deon Vomiting, Abdominal Pain. 02:29 The patient presents to the emergency department with nausea, that is mild, that is deon moderate, vomiting, that is continuous. Onset: The symptoms/episode began/occurred yesterday. Possible causes: unknown. The symptoms are aggravated by nothing. The symptoms are alleviated by nothing. Associated signs and symptoms: The patient has no apparent associated signs or symptoms, Pertinent positives: abdominal pain. Severity of symptoms: At their worst the symptoms were mild moderate in the emergency department the symptoms are unchanged. Historical: - Allergies: 02/15 23:27 No Known Allergies; hb - Immunization history:: Adult Immunizations up to date. - Social history:: Smoking status: Patient denies any tobacco usage or history of. - Family history:: not pertinent. ROS: 02/16 02:29 Constitutional: Negative for fever, chills, and weight loss, Eyes: Negative for injury, deon pain, redness, and discharge, ENT: Negative for injury, pain, and discharge, Neck: Negative for injury, pain, and swelling, Cardiovascular: Negative for chest pain, palpitations, and edema, Respiratory: Negative for shortness of breath, cough, wheezing, and pleuritic chest pain, Back: Negative for injury and pain, : Negative for injury, bleeding, discharge, and swelling, MS/Extremity: Negative for injury and deformity, Skin: Negative for injury, rash, and discoloration, Neuro: Negative for headache, weakness, numbness, tingling, and seizure, Psych: Negative for depression, anxiety, suicide ideation, homicidal ideation, and hallucinations, Allergy/Immunology: Negative for hives, rash, and allergies, Endocrine: Negative for neck swelling, polydipsia, polyuria, polyphagia, and marked weight changes, Hematologic/Lymphatic: Negative for swollen nodes, abnormal bleeding, and unusual bruising. Abdomen/GI: Positive for abdominal pain, nausea and vomiting, of the umbilical area. Exam: 02:29 Constitutional: This is a well developed, well nourished patient who is awake, alert, deon and in no acute distress. Head/Face: Normocephalic, atraumatic. Eyes: Pupils equal round and reactive to light, extra-ocular motions intact. Lids and lashes normal. Conjunctiva and sclera are non-icteric and not injected. Cornea within normal limits. Periorbital areas with no swelling, redness, or edema. ENT: Nares patent. No nasal discharge, no septal abnormalities noted. Tympanic membranes are normal and external auditory canals are clear. Oropharynx with no redness, swelling, or masses, exudates, or evidence of obstruction, uvula midline. Mucous membranes moist. Neck: Trachea midline, no thyromegaly or masses palpated, and no cervical lymphadenopathy. Supple, full range of motion without nuchal rigidity, or vertebral point tenderness. No Meningismus. Chest/axilla: Normal chest wall appearance and motion. Nontender with no deformity. No lesions are appreciated. Cardiovascular: Regular rate and rhythm with a normal S1 and S2. No gallops, murmurs, or rubs. Normal PMI, no JVD. No pulse deficits. Respiratory: Lungs have equal breath sounds bilaterally, clear to auscultation and percussion. No rales, rhonchi or wheezes noted. No increased work of breathing, no retractions or nasal flaring. Back: No spinal tenderness. No costovertebral tenderness. Full range of motion. Skin: Warm, dry with normal turgor. Normal color with no rashes, no lesions, and no evidence of cellulitis. MS/ Extremity: Pulses equal, no cyanosis. Neurovascular intact. Full, normal range of motion. Neuro: Awake and alert, GCS 15, oriented to person, place, time, and situation. Cranial nerves II-XII grossly intact. Motor strength 5/5 in all extremities. Sensory grossly intact. Cerebellar exam normal. Normal gait. Psych: Awake, alert, with orientation to person, place and time. Behavior, mood, and affect are within normal limits. Vital Signs: 02/15 23:26 BP 139 / 87; Pulse 85; Resp 18; Temp 98.3(O); Pulse Ox 100% on R/A; Weight 81.65 kg; hb Height 5 ft. 3 in. (160.02 cm); Pain 10/10; 02/16 04:15 BP 129 / 84; Pulse 83; Resp 17 S; Pulse Ox 100% on R/A; lg3 02/15 23:26 Body Mass Index 31.89 (81.65 kg, 160.02 cm) hb MDM: 00:18 [facility] 02[facility]33 Differential diagnosis: Nonspecific abd pain, gastritis, cholecystitis, pancreatitis, deon appendicitis, diverticulitis, viral gastroenteritis, gastroenteritis. Data reviewed: vital signs, nurses notes, lab test result(s), radiologic studies, CT scan. Data interpreted: site monitor: rate is 85 beats/min, rhythm is regular, Pulse oximetry: on room air is 100 %. Counseling: I had a detailed discussion with the patient and/or guardian regarding: the historical points, exam findings, and any diagnostic results supporting the discharge/admit diagnosis, lab results, radiology results. 02/16 00:21 Order name: CBC with Diff; Complete Time: 02:29 [facility] 02/16 00:21 Order name: CMP; Complete Time: 02:29 [facility] 02/16 00:21 Order name: Lipase; Complete Time: 02:29 [facility] 02/16 00:21 Order name: Urine Microscopic Only; Complete Time: 02:29 [facility] 02/16 00:35 Order name: Urine --Ancillary (enter results); Complete Time: 02:29 [facility] 02/16 00:35 Order name: Urine Dipstick-Ancillary; Complete Time: 02:29 [facility] 02/16 00:21 Order name: Abdomen Limited [facility] 02/16 00:32 Order name: CT Abd/Pelvis - IV Contrast Only [facility] 02/16 00:57 Order name: Manual Differential; Complete Time: 02:29 [facility] 02/16 00:21 Order name: IV Saline Lock; Complete Time: 00:44 [facility] 02/16 00:21 Order name: Labs collected and sent; Complete Time: 00:44 [facility] 02/16 00:21 Order name: Urine Dipstick-Ancillary (obtain specimen); Complete Time: 00:35 [facility] 02/16 00:21 Order name: Urine Test (obtain specimen); Complete Time: 00:35 [facility] Administered Medications: 02/15 23:30 Drug: Zofran (Ondansetron) 4 mg Route: PO; 02/16 00:44 Follow up: Response: No change in condition; Vomiting unchanged tw5 00:44 Drug: Pepcid (famotidine) 20 mg Route: IVP; Site: left antecubital; as6 01:25 Follow up: Response: No adverse reaction tw5 00:45 Drug: NS 0.9% 1000 ml Route: IV; Rate: 1 bolus; Site: left antecubital; as6 01:25 Follow up: Response: No adverse reaction; IV Status: Completed infusion; IV Intake: tw5 1000ml 02:35 Follow up: Response: No adverse reaction; IV Status: Completed infusion; IV Intake: lg3 1000ml 00:45 Drug: Zofran (Ondansetron) 4 mg Route: IVP; Site: left antecubital; as6 01:25 Follow up: Response: No adverse reaction; Marked relief of symptoms; Nausea is decreasedtw5 00:45 Drug: morphine 4 mg Route: IVP; Infused Over: 4 mins; Site: left antecubital; as6 01:25 Follow up: Response: No adverse reaction; Marked relief of symptoms tw5 02:36 Drug: NS 0.9% 1000 ml Route: IV; Rate: 1 bolus; Site: left antecubital; lg3 04:14 Follow up: Response: No adverse reaction; IV Status: Completed infusion; IV Intake: lg3 1000ml 04:14 Drug: Zofran (Ondansetron) 4 mg Route: PO; lg3 04:14 Follow up: Response: No adverse reaction; Marked relief of symptoms lg3 Disposition Summary: 02/16/22 03:32 Discharge Ordered Location: Home deon Problem: new deon Symptoms: have improved deon Condition: Stable deon Diagnosis - Vomiting deon - Elevated white blood cell count, unspecified deon - Bandemia deon - Abdominal tenderness deon Followup: deon - With: Private Physician - When: 1 - 2 days - Reason: Recheck today's complaints, Continuance of care, Re-evaluation by your physician Discharge Instructions: - Discharge Summary Sheet deon - Abdominal Pain, Adult deon - Abdominal Pain, Adult, [id number] deon - Appendicitis, Adult, [id number] deon Forms: - Medication Reconciliation Form deon - Thank You Letter deon - Antibiotic Education deon - Prescription Opioid Use deon Prescriptions: - Zofran 4 mg Oral Tablet - take 1 tablet by ORAL route every 12 hours As needed; 20 tablet; Refills: 0, deon Product Selection Permitted Signatures: Dispatcher [employer] Orlando Antonio MD MD cha Baxter, Heather, RN RN Clarissa Wolf RN RN lg3 Jeff Rowley, RN RN as6 Nubia Singh 5
--- NOTE | 2022-02-16 03:33 | ER ---
Nurse's Notes [facility] Name: Sue Pike Age: 26 yrs Sex: Female : 1995 Arrival Date: 02/15/2022 Time: 23:18 Bed 16 Private MD: Diagnosis: Vomiting;Elevated white blood cell count, unspecified;Bandemia;Abdominal tenderness Presentation: 02/15 23:26 Chief complaint: Upper abdominal pain and vomiting since this morning. Not tolerating hb fluids. Actively vomiting in triage. Coronavirus screen: Client presents with at least one sign or symptom that may indicate coronavirus-19. Standard/surgical mask placed on the client. Provider contacted for isolation considerations. Ebola Screen: No symptoms or risks identified at this time. Risk Assessment: Do you want to hurt yourself or someone else? Patient reports no desire to harm self or others. Onset of symptoms was February 15, 2022. 23:26 Method Of Arrival: Ambulatory 23:26 Acuity: CINDY 3 hb 02/16 00:45 Initial Sepsis Screen: Does the patient meet any 2 criteria? No. Patient's initial as6 sepsis screen is negative. Does the patient have a suspected source of infection? No. Patient's initial sepsis screen is negative. Triage Assessment: 02/15 23:27 General: Appears in no apparent distress. ill, Behavior is calm, cooperative. Pain: hb Pain currently is 10 out of 10 on a pain scale. EENT: No signs and/or symptoms were reported regarding the EENT system. Neuro: Level of Consciousness is awake, alert, obeys commands, Oriented to person, place, time, situation. Cardiovascular: Patient's skin is warm and dry. Respiratory: Respiratory effort is even, unlabored, Respiratory pattern is regular, symmetrical. GI: Reports upper abdominal pain, intolerance of fluids, nausea, vomiting. : No signs and/or symptoms were reported regarding the genitourinary system. Derm: Skin is pink, warm \T\ dry. Musculoskeletal: No signs and/or symptoms reported regarding the musculoskeletal system. Historical: - Allergies: 23:27 No Known Allergies; hb - Immunization history:: Adult Immunizations up to date. - Social history:: Smoking status: Patient denies any tobacco usage or history of. - Family history:: not pertinent. Screenin/18 00:41 Abuse screen: Denies threats or abuse. Denies injuries from another. Nutritional tw5 screening: No deficits noted. Tuberculosis screening: No symptoms or risk factors identified. Fall Risk None identified. Assessment: 00:41 General: Appears in no apparent distress. uncomfortable, Behavior is calm, cooperative. tw5 Pain: Complains of pain in abdomen Pain currently is 7 out of 10 on a pain scale. Noted to be guarding, resistant to movement, Also complains of nausea. Neuro: No deficits noted. Level of Consciousness is awake, alert, obeys commands, Oriented to person, place, time, situation. Cardiovascular: No deficits noted. Denies chest pain, shortness of breath, Capillary refill < 3 seconds Clubbing of nail beds is absent JVD is absent Patient's skin is warm and dry. Respiratory: No deficits noted. Airway is patent Trachea midline Respiratory effort is even, unlabored, Respiratory pattern is regular, symmetrical, Breath sounds are clear bilaterally. GI: Abdomen is round non-distended, Pt is actively vomiting bile, Bowel sounds present X 4 quads. Reports lower abdominal pain, upper abdominal pain, bloating, cramping, intolerance of fluids, intolerance of food, nausea, vomiting. : No deficits noted. No signs and/or symptoms were reported regarding the genitourinary system. EENT: No deficits noted. No signs and/or symptoms were reported regarding the EENT system. Derm: No deficits noted. No signs and/or symptoms reported regarding the dermatologic system. Skin is intact, is healthy with good turgor, Skin is dry, Skin is normal, Skin temperature is warm. Musculoskeletal: No deficits noted. No signs and/or symptoms reported regarding the musculoskeletal system. Circulation, motion, and sensation intact. Range of motion: intact in all extremities. 01:35 Reassessment: Patient appears in no apparent distress at this time. No changes from tw5 previously documented assessment. Patient and/or family updated on plan of care and expected duration. Pain level reassessed. Patient is alert, oriented x 3, equal unlabored respirations, skin warm/dry/pink. Patient states symptoms have improved. 02:36 Reassessment: Patient appears in no apparent distress at this time. No changes from lg3 previously documented assessment. Patient and/or family updated on plan of care and expected duration. Pain level reassessed. Patient is alert, oriented x 3, equal unlabored respirations, skin warm/dry/pink. Patient states symptoms have improved. 04:14 Reassessment: Patient appears in no apparent distress at this time. No changes from lg3 previously documented assessment. Patient and/or family updated on plan of care and expected duration. Pain level reassessed. Patient is alert, oriented x 3, equal unlabored respirations, skin warm/dry/pink. Patient denies pain at this time. Patient states feeling better. Patient states symptoms have improved. Vital Signs: 02/15 23:26 BP 139 / 87; Pulse 85; Resp 18; Temp 98.3(O); Pulse Ox 100% on R/A; Weight 81.65 kg; hb Height 5 ft. 3 in. (160.02 cm); Pain 10/10; 02/16 04:15 BP 129 / 84; Pulse 83; Resp 17 S; Pulse Ox 100% on R/A; lg3 02/15 23:26 Body Mass Index 31.89 (81.65 kg, 160.02 cm) hb ED Course: 02/15 23:18 Patient arrived in ED. bp1 23:27 Triage completed. hb 23:27 Arm band placed on. hb 02/16 00:18 Orlando Marion MD is Attending Physician. [place] 00:23 Nubia Singh is Primary Nurse. tw5 00:36 Urine Microscopic Only Sent. tw5 00:40 Inserted saline lock: 18 gauge in left antecubital area, using aseptic technique. Blood as6 collected. 00:41 Patient has correct armband on for positive identification. Placed in gown. Bed in low tw5 position. Call light in reach. Side rails up X 1. Client placed on continuous cardiac and pulse oximetry monitoring. NIBP monitoring applied. Door closed. Noise minimized. Warm blanket given. 01:05 Abdomen Limited US In Process Unspecified. EDMS 02:28 CT Abd/Pelvis - IV Contrast Only In Process Unspecified. EDMS 04:15 No provider procedures requiring assistance completed. IV discontinued, intact, lg3 bleeding controlled, No redness/swelling at site. Pressure dressing applied. Administered Medications: 02/15 23:30 Drug: Zofran (Ondansetron) 4 mg Route: PO; hb 02/16 00:44 Follow up: Response: No change in condition; Vomiting unchanged tw5 00:44 Drug: Pepcid (famotidine) 20 mg Route: IVP; Site: left antecubital; as6 01:25 Follow up: Response: No adverse reaction tw5 00:45 Drug: NS 0.9% 1000 ml Route: IV; Rate: 1 bolus; Site: left antecubital; as6 01:25 Follow up: Response: No adverse reaction; IV Status: Completed infusion; IV Intake: tw5 1000ml 02:35 Follow up: Response: No adverse reaction; IV Status: Completed infusion; IV Intake: lg3 1000ml 00:45 Drug: Zofran (Ondansetron) 4 mg Route: IVP; Site: left antecubital; as6 01:25 Follow up: Response: No adverse reaction; Marked relief of symptoms; Nausea is decreasedtw5 00:45 Drug: morphine 4 mg Route: IVP; Infused Over: 4 mins; Site: left antecubital; as6 01:25 Follow up: Response: No adverse reaction; Marked relief of symptoms tw5 02:36 Drug: NS 0.9% 1000 ml Route: IV; Rate: 1 bolus; Site: left antecubital; lg3 04:14 Follow up: Response: No adverse reaction; IV Status: Completed infusion; IV Intake: lg3 1000ml 04:14 Drug: Zofran (Ondansetron) 4 mg Route: PO; lg3 04:14 Follow up: Response: No adverse reaction; Marked relief of symptoms lg3 Medication: 04:16 VIS not applicable for this client. lg3 Intake: 01:25 IV: 1000ml; Total: 1000ml. tw5 02:35 IV: 1000ml; Total: 2000ml. lg3 04:14 IV: 1000ml; Total: 3000ml. lg3 Outcome: 03:32 Discharge ordered by . deon 04:15 Discharged to home ambulatory, with significant other. lg3 04:15 Condition: stable 04:15 Discharge instructions given to patient, significant other, Instructed on discharge instructions, follow up and referral plans. medication usage, Demonstrated understanding of instructions, follow-up care, medications, Prescriptions given X 1. 04:16 Patient left the ED. lg3 Signatures: Dispatcher [employer] EDSD Orlando Marion MD MD cha Baxter, Heather, RN RN hb Gibson, Lacie, RN RN lg3 Savanna Aguilar, Nubia tw5 Jeff Rowley, RN RN as6 Corrections: (The following items were deleted from the chart) 02/15 23:30 23:26 Chief complaint: Upper abdominal pain and vomiting since this morning. Not hb tolerating fluids. hb
[2022-02-16] MEDS ORDERED: ONDANSETRON 4 MG (ODT) TAB ONE (04:15)
--- NOTE | 2022-02-17 13:07 | RAD REPORT ---
EXAM DESCRIPTION: US - Abdomen Exam Limited - 02/16/2022 1:04 am CLINICAL HISTORY: 26 years, Female, ABD PAIN COMPARISON: None. TECHNIQUE: Utilizing a curved array transducer, real-time ultrasound evaluation of the abdominal vis cera was performed. Color Doppler imaging was used to assess vascular flow. FINDINGS: The liver was limited in evaluation. The gallbladder demonstrate to be within normal limits. No gallbladder stones were seen. No peric holecystic fluid and or wall thickening was identified. The common bile duct measures 2.1 mm. No intra or extrahepatic biliary duct dilatation was identified. The pancreas, right kidney was not evaluated. The abdominal aorta and/or retroperitoneum was not imag ed. IMPRESSION: No acute abnormalities. Electronically signed by: Mark Moore MD 02/16/2022 1:25 AM CDT Due to temporary technical issues with the PACS/Fluency reporting system, reports are being signed by the in house radiologists without review as a courtesy to insure prompt reporting. The interpreting radiologist is fully responsible for the content of the report.
--- NOTE | 2022-02-17 13:10 | RAD REPORT ---
EXAM DESCRIPTION: CT - Abdomen Pelvis W Contrast - 02/16/2022 2:26 am CLINICAL HISTORY: 26 years, Female, Abdominal pain, acute, nonlocalized COMPARISON: 10/16/2019 TECHNIQUE: Contrast-enhanced images of the abdomen and pelvis were performed utilizing 5 mm slice th ickness at 5 mm interval reconstruction from the lung bases to the ischial tuberosities after the adm inistration of IV contrast . In addition multiplanar reformats in the coronal and sagittal plane were obtained and reviewed. This exam was performed according to our departmental dose-optimization protocol, which includes auto mated exposure control, adjustment of the mA and/or kV according to patient size and/or use of iterat ariel reconstruction technique. FINDINGS: The lung bases demonstrate to be clear. The liver, gallbladder, pancreas, spleen and adrenal glands demonstrate to be unremarkable, no focal lesions are noted. The kidneys demonstrate normal uptake of contrast media. No evidence for nephrolithiasis and/or hydro nephrosis. Grossly the unopacified stomach, small bowel and large bowel demonstrate to be within normal limits. There is no evidence for bowel dilatation/or free air there is findings suggesting most likely subo ptimal distention of the hepatic flexure less likely mucosal thickening is considered. The appendix demonstrate the presence of a appendicolith with no evidence for significant dilatation/or inflammat ory changes. The urinary bladder demonstrate to be unremarkable. The uterus demonstrate to be unremarkable. Prev ious described tubular structure within the right adnexal area is no longer visualized and correspond most likely to small bowel. The aorta demonstrate to be normal. There is no retroperitoneal lymp hadenopathy. There is no ascites. The rest of the soft tissue and bony structures are within normal l imits. IMPRESSION: No acute intra-abdominal process. Appendicolith without evidence for significant dilatation and/or inflammatory changes. Electronically signed by: Mark Moore MD 02/16/2022 2:58 AM CDT Due to temporary technical issues with the PACS/Fluency reporting system, reports are being signed by the in house radiologists without review as a courtesy to insure prompt reporting. The interpreting radiologist is fully responsible for the content of the report.
[2022-02-17 18:10] VITALS: BP 129/84; O2SAT 100
[2022-02-17 18:25] VITALS: TEMP 98.3
== END 2022-02-16 04:16 | disposition home or self-care (01) ==
LOC: ER 23:14
DX: R11.2 Nausea with vomiting, unspecified (principal); D72.825 Bandemia
CPT/HCPCS: 96361; 85025; 36415; 81025; 83690; 80053; 74177; 76705; 96375; 96374; 99284; Q9967; Q0162 ×2; J7030 ×2; J2405; 81003; 81015

== ENCOUNTER 2022-04-06 01:45 | Observation (INO) | payer OTHER ==
[~2022-04-06 01:45] MED LIST changes: -BUTORPHANOL 1 MG/ML INJ IV PRN; -CARBOPROST TROME 250 MCG/ML IM PRN; +KETOROLAC 30 MG/ML INJ ONE; -METHYLERGONOVINE 0.2MG/ML AMP IM PRN; +NA CHLORIDE 0.9% 1,000 ML ONE; +ONDANSETRON 4 MG/2 ML VIAL ONE; -PENICILLIN 5 MU in NA CHLORIDE 0.9% 100 ML IV ONE; -PROMETHAZINE INJ 25 MG/ML AMP IM PRN; -Ringers Lactate 1,000 ML IV PRN; -miSOPROStoL 100 MCG TAB VAG PRN
[2022-04-06 01:59] LABS: Absolute Lymphocytes (CBC) 1.8 K/uL (0.7-4.9); Hematocrit 39.6 % (36.0-45.0); Lymphocytes % 7.8 % (15.3-44.8); MCV 84.9 fL (80-100); MPV 9.1 fL (7.6-11.3); RBC Red Blood Cell Count 4.66 M/uL (3.86-4.86)
[2022-04-06 02:00] LABS: Urine Blood Negative (Negative); Urine Glucose Negative (Negative); Urine Protein Negative (Negative)
[2022-04-06] MEDS ORDERED: NA CHLORIDE 0.9% 100 ML IV ONE (02:12)
[2022-04-06] MEDS ORDERED: PIPERACIL/TAZO 3.375 GM VIAL IV ONE (02:14)
[2022-04-06 02:16] LABS: Albumin 3.8 g/dL (3.4-5.0); Bilirubin Total 0.6 mg/dL (0.2-1.0); Potassium 3.5 mmol/L (3.5-5.1); Protein, Total 7.4 g/dL (6.4-8.2)
[2022-04-06 02:21] LABS: Blood Morphology Comment NOT SEEN (NOT SEEN); Platelet Estimate ADEQ
--- NOTE | 2022-04-06 03:56 | ER ---
Nurse's Notes [facility] Name: Sue Pike Age: 26 yrs Sex: Female : 1995 Arrival Date: 04/06/2022 Time: 01:55 Bed 19 Private MD: Diagnosis: Lower abdominal pain, unspecified-Right lower quadrant Presentation: 04/06 01:04 Chief complaint: Patient states: "I woke up with pain in my appendix area. It hurts tw5 worse when I walk.". Coronavirus screen: Vaccine status: Patient reports being unvaccinated. Ebola Screen: Patient negative for fever greater than or equal to 101.5 degrees Fahrenheit, and additional compatible Ebola Virus Disease symptoms Patient denies exposure to infectious person. Patient denies travel to an Ebola-affected area in the 21 days before illness onset. Initial Sepsis Screen: Does the patient meet any 2 criteria? HR > 90 bpm. Does the patient have a suspected source of infection? Yes: Acute abdominal pain. Risk Assessment: Do you want to hurt yourself or someone else? Patient reports no desire to harm self or others. Onset of symptoms was April 06, 2022 at 00:00. 01:04 Method Of Arrival: Ambulatory tw5 01:04 Acuity: CINDY 3 tw5 Triage Assessment: 01:04 General: Appears in no apparent distress. Behavior is calm, cooperative, appropriate tw5 for age. Pain: Complains of pain in right lower quadrant Pain currently is 5 out of 10 on a pain scale. GI: Reports nausea, vomiting. 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 Patient has never been vaccinated. - Social history:: Smoking status: Patient denies any tobacco usage or history of. Screenin: Abuse screen: Denies threats or abuse. Nutritional screening: No deficits noted. bb Tuberculosis screening: No symptoms or risk factors identified. Fall Risk None identified. Assessment: : General: Appears in no apparent distress. Behavior is calm, cooperative. Pain: bb Complains of pain in right lower quadrant. Neuro: Level of Consciousness is awake, alert, obeys commands, Oriented to person, place, time, situation. Cardiovascular: Capillary refill < 3 seconds Patient's skin is warm and dry. Respiratory: Respiratory effort is even, unlabored, Respiratory pattern is regular. GI: Bowel sounds present X 4 quads. Abd is soft X 4 quads Abdomen is tender to palpation in right lower quadrant. Derm: Skin is pink, warm \\T\\ dry. Musculoskeletal: Circulation, motion, and sensation intact. 02:16 Reassessment: pt to CT scan via wheelchair accompanied by pharmacy tech customer service. bb 03:09 Reassessment: Patient is alert, oriented x 3, equal unlabored respirations, skin bb warm/dry/pink. pt resting quietly awaiting results of CT scan. Vital Signs: 01:04 BP 119 / 99; Pulse 101; Resp 18; Temp 98.7; Pulse Ox 100% ; Weight 77.11 kg; Height 5 tw5 ft. 3 in. (160.02 cm); Pain 5/10; 01:27 BP 106 / 61; Pulse 103; Resp 16 S; Pulse Ox 100% on R/A; bb 03:09 BP 115 / 78; Pulse 87; Resp 16 S; Pulse Ox 97% on R/A; bb 04:42 BP 115 / 80; Pulse 80; Resp 17; Temp 98.6; Pulse Ox 100% on R/A; Pain 0/10; ke1 01:04 Body Mass Index 30.11 (77.11 kg, 160.02 cm) tw5 ED Course: 01:01 Vinod Jones MD is Attending Physician. kdr 01:04 Triage completed. tw5 01:04 Arm band placed on right wrist. Patient placed in an exam room. tw5 01:05 Patient has correct armband on for positive identification. Placed in gown. Bed in low tw5 position. Call light in reach. Door closed. Noise minimized. Lights dimmed. Moved to private room. Warm blanket given. Verbal reassurance given. 01:27 Radha Peña RN is Primary Nurse. bb 01:27 No provider procedures requiring assistance completed. bb 01:29 Urine collected: clean catch specimen, clear. bb 01:39 Missed attempt(s): 20 gauge in right in left forearm. antecubital area. 22 gauge in mm9 left forearm. 01:50 Initial lab(s) drawn, by me, sent to lab. Inserted saline lock: 20 gauge in right bb antecubital area, using aseptic technique. Blood collected. 01:54 Lipase Sent. bb 01:54 CMP Sent. bb 01:54 CBC with Diff Sent. bb 01:55 Patient arrived in ED. ja2 02:00 Notified ED physician of a critical lab result(s). wbc 22.9. tw5 02:27 CT Abd/Pelvis - IV Contrast Only In Process Unspecified. EDMS 02:40 First set of blood cultures drawn by me. bb 02:50 Second set of blood cultures drawn by me. bb 03:36 Report given to Abdirizak BLEVINS. bb 03:45 Urine --Ancillary (enter results) Sent. bb 03:55 Vijay Briseno MD is Hospitalizing Provider. kdr 04:50 Patient admitted, IV remains in place. ke1 Administered Medications: 01:50 Drug: NS 0.9% 1000 ml Route: IV; Rate: 1 bolus; Site: right antecubital; bb 01:51 Drug: Ketorolac 15 mg Route: IVP; Site: right antecubital; bb 03:06 Follow up: Response: No adverse reaction bb 01:51 Drug: Zofran (Ondansetron) 4 mg Route: IVP; Site: right antecubital; bb 03:06 Follow up: Response: No adverse reaction bb 03:00 Drug: Zosyn (piperacillin-tazobactam) 3.375 grams Route: IVPB; Infused Over: 60 mins; bb Site: right antecubital; Medication: 01:27 VIS not applicable for this client. bb Outcome: 03:55 Decision to Hospitalize by Provider. kdr 04:49 Admitted to L \\T\\ D, accompanied by tech, Report called to JUSTINA ALEJANDRA ke1 04:49 Condition: good ke1 04:49 Instructed on the need for admit. 05:06 Patient left the ED. ke1 Signatures: Dispatcher [employer] EDMS Vinod Jones MD MD kdr Ballard, Brenda, RN RN Keli Oquendo2 Nubia Singh tw5 Abdirizak Leavitt RN RN ke1 Yeni Briseno mm9
--- NOTE | 2022-04-06 03:56 | EDPHYS ---
Physician Documentation [facility] Name: Sue Pike Age: 26 yrs Sex: Female : 1995 Arrival Date: 04/06/2022 Time: 01:55 Bed 19 Private MD: ED Physician Vinod Jones HPI: 04/06 03:55 This 26 yrs old Female presents to ER via Ambulatory with complaints of Abdominal Pain, kdr Vomiting. 04:06 The patient presents to the emergency department with nausea, that is mild. Onset: The kdr symptoms/episode began/occurred suddenly, today. Possible causes: unknown. The symptoms are aggravated by nothing. The symptoms are alleviated by nothing. Associated signs and symptoms: Pertinent positives: abdominal pain, nausea, vomiting. Severity of symptoms: At their worst the symptoms were mild. The patient has not experienced similar symptoms in the past. The patient has not recently seen a physician. 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 Patient has never been vaccinated. - Social history:: Smoking status: Patient denies any tobacco usage or history of. ROS: 04:06 Constitutional: Negative for fever, chills, and weight loss, Eyes: Negative for injury, kdr pain, redness, and discharge, ENT: Negative for injury, pain, and discharge, Neck: Negative for injury, pain, and swelling, Cardiovascular: Negative for chest pain, palpitations, and edema, Respiratory: Negative for shortness of breath, cough, wheezing, and pleuritic chest pain, Back: Negative for injury and pain, : Negative for injury, bleeding, discharge, and swelling, MS/Extremity: Negative for injury and deformity, Skin: Negative for injury, rash, and discoloration, Neuro: Negative for headache, weakness, numbness, tingling, and seizure activity. Psych: Negative for depression, anxiety, suicide ideation, homicidal ideation, and hallucinations, Allergy/Immunology: Negative for hives, rash, and allergies, Endocrine: Negative for neck swelling, polydipsia, polyuria, polyphagia, and marked weight changes, Hematologic/Lymphatic: Negative for swollen nodes, abnormal bleeding, and unusual bruising. 04:06 Abdomen/GI: Positive for abdominal pain, nausea and vomiting, Negative for abdominal cramps, abdominal distension, anorexia, dysphagia, hematemesis, black/tarry stool, rectal pain, rectal bleeding, bowel incontinence. Exam: 04:06 Constitutional: This is a well developed, well nourished patient who is awake, alert, kdr and in no acute distress. Head/Face: Normocephalic, atraumatic. Eyes: Pupils equal round and reactive to light, extra-ocular motions intact. Lids and lashes normal. Conjunctiva and sclera are non-icteric and not injected. Cornea within normal limits. Periorbital areas with no swelling, redness, or edema. Neck: Trachea midline, no thyromegaly or masses palpated, and no cervical lymphadenopathy. Supple, full range of motion without nuchal rigidity, or vertebral point tenderness. No Meningismus. Chest/axilla: Normal chest wall appearance and motion. Nontender with no deformity. No lesions are appreciated. Cardiovascular: Regular rate and rhythm with a normal S1 and S2. No gallops, murmurs, or rubs. Normal PMI, no JVD. No pulse deficits. Respiratory: Lungs have equal breath sounds bilaterally, clear to auscultation and percussion. No rales, rhonchi or wheezes noted. No increased work of breathing, no retractions or nasal flaring. Back: No spinal tenderness. No costovertebral tenderness. Full range of motion. Skin: Warm, dry with normal turgor. Normal color with no rashes, no lesions, and no evidence of cellulitis. MS/ Extremity: Pulses equal, no cyanosis. Neurovascular intact. Full, normal range of motion. Neuro: Awake and alert, GCS 15, oriented to person, place, time, and situation. Cranial nerves II-XII grossly intact. Motor strength 5/5 in all extremities. Sensory grossly intact. Cerebellar exam normal. Normal gait. Psych: Awake, alert, with orientation to person, place and time. Behavior, mood, and affect are within normal limits. 04:06 Abdomen/GI: Inspection: obese Bowel sounds: active, Palpation: soft, mild abdominal tenderness, in the right lower quadrant and left lower quadrant. Vital Signs: 01:04 BP 119 / 99; Pulse 101; Resp 18; Temp 98.7; Pulse Ox 100% ; Weight 77.11 kg; Height 5 tw5 ft. 3 in. (160.02 cm); Pain 5/10; 01:27 BP 106 / 61; Pulse 103; Resp 16 S; Pulse Ox 100% on R/A; bb 03:09 BP 115 / 78; Pulse 87; Resp 16 S; Pulse Ox 97% on R/A; bb 04:42 BP 115 / 80; Pulse 80; Resp 17; Temp 98.6; Pulse Ox 100% on R/A; Pain 0/10; ke1 01:04 Body Mass Index 30.11 (77.11 kg, 160.02 cm) tw5 MDM: 03:55 Patient medically screened. kdr 04:06 Data reviewed: vital signs, nurses notes, lab test result(s), radiologic studies. kdr Counseling: I had a detailed discussion with the patient and/or guardian regarding: the historical points, exam findings, and any diagnostic results supporting the discharge/admit diagnosis, lab results, radiology results, the need for further work-up and treatment in the hospital. Physician consultation: Vijay Briseno MD was called at 04:10, was contacted at 04:10, regarding admission, and will see patient in inpatient room, later today. Admission orders: after a detailed discussion of the patient's condition and case, the admit orders are written by me. 04/06 01:19 Order name: CBC with Diff kdr 04/06 01:19 Order name: CMP kdr 04/06 01:19 Order name: Lipase kdr 04/06 01:35 Order name: Urine --Ancillary (enter results) wm 04/06 02:00 Order name: Urine Dipstick-Ancillary; Complete Time: 02:04 EDMS 04/06 02:01 Order name: CBC with Automated Diff; Complete Time: 03:52 EDMS 04/06 02:03 Order name: Manual Differential; Complete Time: 03:52 EDMS 04/06 02:16 Order name: Comprehensive Metabolic Panel; Complete Time: 03:52 EDMS 04/06 02:16 Order name: Lipase; Complete Time: 03:52 EDMS 04/06 02:18 Order name: Urine --Ancillary; Complete Time: 03:52 EDMS 04/06 03:07 Order name: Blood Culture Adult (2) bb 04/06 04:05 Order name: SARS RAPID ke1 04/06 04:19 Order name: Basic Metabolic Panel EDMS 04/06 04:19 Order name: Basic Metabolic Panel EDMS 04/06 01:19 Order name: IV Saline Lock; Complete Time: 01:54 kdr 04/06 01:19 Order name: Labs collected and sent; Complete Time: 01:54 kdr 04/06 01:19 Order name: Urine Test (obtain specimen); Complete Time: 01:35 kdr 04/06 01:19 Order name: CT Abd/Pelvis - IV Contrast Only kdr 04/06 04:19 Order name: NPO EDMS 04/06 04:19 Order name: CBC with Automated Diff EDMS 04/06 04:19 Order name: CBC with Automated Diff EDMS Administered Medications: 01:50 Drug: NS 0.9% 1000 ml Route: IV; Rate: 1 bolus; Site: right antecubital; bb 01:51 Drug: Ketorolac 15 mg Route: IVP; Site: right antecubital; bb 03:06 Follow up: Response: No adverse reaction bb 01:51 Drug: Zofran (Ondansetron) 4 mg Route: IVP; Site: right antecubital; bb 03:06 Follow up: Response: No adverse reaction bb 03:00 Drug: Zosyn (piperacillin-tazobactam) 3.375 grams Route: IVPB; Infused Over: 60 mins; bb Site: right antecubital; Disposition Summary: 04/06/22 03:55 Hospitalization Ordered Hospitalization Status: Inpatient Admission kdr Provider: Vijay Briseno Condition: Fair kdr Problem: new kdr Symptoms: have improved kdr Bed/Room Type: Standard kdr [facility]04[facility]/22 04:30[facility] mw Room Assignment: 270-(04/06/22 04:30) mw Diagnosis - Lower abdominal pain, unspecified - Right lower quadrant kdr Forms: - Medication Reconciliation Form kdr - SBAR form kdr Signatures: Dispatcher [employer] EDMS Yudy Sosa RN RN mw Rittger, Kevin, MD MD kdr Radha Peña RN RN bb Wood, Tiffany tw5 Corrections: (The following items were deleted from the chart) 04:30 03:55 Telemetry/MedSurg (Inpatient) [facility] 04:30 03:55 [facility]
[2022-04-06] MEDS ORDERED: ACETAMINOPHEN 500 MG TAB PO PRN (04:15)
[2022-04-06 04:29] LABS: SARS-CoV-2 Antigen Rapid Res Negative (Negative)
[2022-04-06] MEDS: ONDANSETRON 4 MG/2 ML VIAL IV PRN ×2 (05:03→08:53)
[2022-04-06] MEDS: D5 0.45 NS 1,000 ML IV SCH ×3 (05:20→22:27)
[2022-04-06 05:36] VITALS: BMI 30.1
[2022-04-06] MEDS ORDERED: Ringers Lactate 1,000 ML IV ONE (09:47)
[2022-04-06] MEDS ORDERED: FENTANYL CITR 100 MCG/2 ML ONE (09:57)
[2022-04-06] MEDS ORDERED: LIDOCAINE 2% MPF 5 ML VIAL ONE (09:57)
[2022-04-06] MEDS ORDERED: ROCURONIUM 50 MG/5 ML VIAL IV ONE (09:57)
[2022-04-06] MEDS ORDERED: propofoL 200 MG/20 ML VIAL IV ONE (09:57)
[2022-04-06] MEDS: PIPER TAZO 3.375 GM in NA CHLORIDE 0.9% 100 ML IV SCH ×4 (10:03→18:23)
[2022-04-06] MEDS ORDERED: dexAMETHasone 10 MG/ML VIAL ONE (10:14)
[2022-04-06] MEDS ORDERED: KETOROLAC 30 MG/ML INJ ONE (10:15)
[2022-04-06] MEDS ORDERED: ONDANSETRON 4 MG/2 ML VIAL ONE ×2 (10:15→11:01)
[2022-04-06] MEDS ORDERED: GLYCOPYRROLATE 0.2 MG/ML SYR ONE ×2 (10:30→10:39)
[2022-04-06] MEDS ORDERED: NEOSTIGMINE 1 MG/ML -5 ML ONE (10:31)
--- NOTE | 2022-04-06 10:51 | P.BOP ---
Preoperative diagnosis: acute appendicitis Postoperative diagnosis: same Primary procedure: Laparoscopic appendectomy Meat Press Operator: Alyson Seals (Krissy) Estimated blood loss: <10cc Specimen: holly Findings: as above Anesthesia: General Complications: None Transferred to: Recovery Room Condition: Good
[2022-04-06] MEDS: HYDROMORPHONE HCL 1 MG/ML INJ ONE ×4 (11:03→11:28)
[2022-04-06 11:32] VITALS: O2SAT 100
[2022-04-06] MEDS ORDERED: PROMETHAZINE INJ 25 MG/ML AMP IV PRN (12:44)
[2022-04-06] MEDS: HYDROCODONE/APAP 5/325 MG TAB PO PRN ×3 (13:56→22:28)
--- NOTE | 2022-04-06 19:53 | HP ---
Date of Admission: 04/06/2022 Preoperative Diagnoses: Acute appendicitis. History Of Present Illness: This is a case of a 26-year-old who came here with abdominal pain since last night. She ate what she claimed just some Tacos that she normally eat and went to sleep and the n after midnight, developed abdominal pain. She said it did not get better and basically decided to come to the ER this morning, diagnosed with acute appendicitis and a surgical evaluation was tino ruiz. She states she was few months ago in the ER with also symptoms of what she thought was acute appe ndicitis, but then she was sent home and she improved. At this time, it did not happen. Past Medical History: None. Medications: None. Past Surgical History: None. Allergies: NONE. Social History: She does not smoke. She does not drink alcohol. Review of Systems: Nausea, vomiting, abdominal pain. Review of systems ten points were otherwise unremarkable. See his tory above. Physical Examination: General: The patient is awake and alert. HEENT: Pupils are equal and reactive. Anicteric. Neck: Supple. Chest: Clear. Heart: S1, S2. Abdomen: Right upper quadrant tenderness with Rovsing sign and psoas sign is positive. Breasts: Deferred. Pelvic: Deferred. Rectal: Deferred. Extremities: Good capillary refill. Neurological: Cranial nerves 2 through 12 are grossly within normal limits. Laboratory Data: Blood work shows a WBC count of 22 with hemoglobin of 13 and platelets of 208, pota ssium 3.5. Urine negative. CAT scan of the abdomen and pelvis shows acute appendicitis. Impression: This is a case of a 26-year-old patient with acute appendicitis. Patient and the mother were fully explained the benefits, alternatives, and risks of laparoscopic, possible open appendecto my, which include, but not limited to, infection, bleeding, damage to adjacent structures, anesthesia complication, negative appendix, OH, and even . She also understands this may not relieve any symptoms. She might need more than one surgical intervention. She understood, signed a consent. TAB Voice ID: [id number]
--- NOTE | 2022-04-06 20:50 | RAD REPORT ---
EXAM DESCRIPTION: Abdomen Pelvis W Contrast CLINICAL HISTORY: RLQ abdominal pain COMPARISON: 02/16/2022 TECHNIQUE: CT of the abdomen and pelvis performed following IV administration of iodinated contras t. This exam was performed according to our departmental dose-optimization program, which includes au tomated exposure control, adjustment of the mA and/or kV according to patient size and/or use of iter ative reconstruction technique. FINDINGS: Lung Bases: The visualized lung bases are clear. Bones: No destructive bone lesions identified. Abdomen: Liver: The liver has normal size and density. No intrahepatic biliary dilatation. Gallbladder: No calcified gallstones. Spleen, Pancreas, and Adrenal Glands: The spleen, pancreas, and adrenal glands are unremarkable. Kidneys: No hydronephrosis or obstructing calculus. Vasculature: The aorta and IVC have normal caliber and position. The portal vein is patent. The pro ximal visceral and renal arteries are patent. Stomach: The stomach and duodenum have normal course. Other: No free intraperitoneal air. Small amount of free fluid. Pelvis: Bladder: Urinary bladder is unremarkable. Bowel: No dilated loops of large or small bowel. Appendix: Appendicolith with mild dilation of the appendix measuring 1.0 cm. No well-circumscribed pericolic fluid collection. Pelvis: Uterus is not enlarged. IMPRESSION: Appendicolith with mild dilation of the appendix measuring 1.0 cm. These findings could be seen with early acute appendicitis. Electronically signed by: Dylan Dougherty 04/06/2022 3:30 AM MENTAL HEALTH PROGRAM DIRECTOR Due to temporary technical issues with the PACS/Fluency reporting system, reports are being signed by the in house radiologists without review as a courtesy to insure prompt reporting. The interpreting radiologist is fully responsible for the content of the report.
[2022-04-07] MEDS: HYDROCODONE/APAP 5/325 MG TAB PO PRN ×3 (02:16→11:28)
[2022-04-07] MEDS: PIPER TAZO 3.375 GM in NA CHLORIDE 0.9% 100 ML IV SCH ×2 (02:19→11:00)
[2022-04-07 04:25] LABS: Absolute Lymphocytes (CBC) 1.9 K/uL (0.7-4.9); Hematocrit 30.9 % (36.0-45.0); Lymphocytes % 16.3 % (15.3-44.8); MCV 86.2 fL (80-100); MPV 8.9 fL (7.6-11.3); RBC Red Blood Cell Count 3.58 M/uL (3.86-4.86)
[2022-04-07 04:43] LABS: Potassium 3.7 mmol/L (3.5-5.1)
[2022-04-07 08:33] VITALS: TEMP 98.8
--- NOTE | 2022-04-07 11:06 | P.DS ---
Admission Date: 04/06/22 Discharge Date: 04/07/22 Disposition: ROUTINE DISCHARGE Discharge Condition: GOOD - Problems (1) Appendicitis Current Visit: Yes Status: Acute Hospital Course: unremarkable Vital Signs/Physical Exam: Temp Pulse Resp BP Pulse Ox 98.8 F 84 16 125/71 98 04/07/22 08:05 04/07/22 08:05 04/07/22 08:05 04/07/22 08:05 04/07/22 04:00 General: Alert, Oriented x3, Cooperative HEENT: Normocephalic, PERRLA Neck: Supple Respiratory: Clear to auscultation bilaterally Cardiovascular: No edema, Normal pulses Gastrointestinal: Soft and benign Integumentary: No erythema, No warmth, No cyanosis Neurological: Normal speech Laboratory Data at Discharge: WBC 11.60 K/uL (4.3-10.9) H 04/07/22 04:13 Hgb 10.6 g/dL (12.0-15.0) L D 04/07/22 04:13 Hct 30.9 % (36.0-45.0) L 04/07/22 04:13 Plt Count 139 K/uL (152-406) L D 04/07/22 04:13 Sodium 137 mmol/L (136-145) 04/07/22 04:13 Potassium 3.7 mmol/L (3.5-5.1) 04/07/22 04:13 BUN 7 mg/dL (7-18) 04/07/22 04:13 Creatinine 0.61 mg/dL (0.55-1.3) 04/07/22 04:13 Glucose 98 mg/dL (74-106) 04/07/22 04:13 Total Bilirubin 0.6 mg/dL (0.2-1.0) 04/06/22 01:50 PATIENT OBSERVER AST 12 U/L (15-37) L 04/06/22 01:50 PATIENT OBSERVER ALT 20 U/L (12-78) 04/06/22 01:50 PATIENT OBSERVER Alkaline Phosphatase 75 U/L (45-117) 04/06/22 01:50 PATIENT OBSERVER Lipase 92 U/L (73-393) 04/06/22 01:50 PATIENT OBSERVER Home Medications: NK [No Home Meds] 04/06/22 Physician Discharge Instructions: Keep area dry for 48h then may remove outer dressing and shower. Diet: Regular Activity: No lifting more than 10 lbs Followup: Polina Cortez MD [Primary Care Provider] - Vijay Briseno MD [ACTIVE - CAN ADMIT] - 1 Week
[2022-04-07 14:16] VITALS: BP 120/70
== END 2022-04-07 12:38 | disposition home or self-care (01) ==
LOC: ER 01:45 → INTOOBSV 04:17 → ERHOLD 04:17 → 2ND-WC 04:43
PROVIDERS: ADMIT Surgery; ATTEND Surgery
PROC: 0DTJ4ZZ Resection of Appendix, Percutaneous Endoscopic Approach (ICD-10-PCS; principal; 2022-04-06 10:00)
DX: K35.80 Unspecified acute appendicitis (principal); Z20.822 Contact with and (suspected) exposure to COVID-19
CPT/HCPCS: 87040 ×2; 85025 ×2; 80048; 36415 ×2; 81025; 88304; 81003; 83690; 80053; 74177; 94010; 96375; 96374; 99285; 87811; 44970; Q9967; J2704; J2550; J2543 ×5; J2001; J3010; J1100; J1170; J2710; G0378 ×4; J7799 ×4; J7120; J7030; J2405 ×4

== ENCOUNTER 2022-06-03 04:58 | Emergency (ER) | payer OTHER ==
[2022-06-03 06:11] LABS: Urine Blood Negative (Negative); Urine Glucose Negative (Negative); Urine Protein 1+ (Negative); Urine Specific Gravity 1.015 (1.005-1.030); Urine pH 8.5 (5.0-7.0)
[2022-06-03] MEDS ORDERED: NA CHLORIDE 0.9% 1,000 ML ONE (06:16)
[2022-06-03] MEDS ORDERED: ONDANSETRON 4 MG/2 ML VIAL ONE (06:16)
[2022-06-03 06:47] LABS: Absolute Lymphocytes (CBC) 0.6 K/uL (0.7-4.9); Hematocrit 40.3 % (36.0-45.0); Lymphocytes % 4.1 % (15.3-44.8); MCV 84.7 fL (80-100); MPV 9.8 fL (7.6-11.3); RBC Red Blood Cell Count 4.76 M/uL (3.86-4.86)
[2022-06-03 07:12] LABS: Albumin 3.8 g/dL (3.4-5.0); Bilirubin Total 0.7 mg/dL (0.2-1.0); Potassium 4.1 mmol/L (3.5-5.1); Protein, Total 7.5 g/dL (6.4-8.2)
--- NOTE | 2022-06-03 07:16 | ER ---
Nurse's Notes [facility] Name: Sue Pike Age: 26 yrs Sex: Female : 1995 Arrival Date: 06/03/2022 Time: 05:02 Bed 24 Private MD: Diagnosis: Vomiting;Diarrhea, unspecified;Elevated white blood cell count Presentation: 06/03 05:56 Chief complaint: Patient states: she started vomiting with diarrhea since yesterday bb after lunch and cannot hold anything down pt is breast feeding and didn't want to get dehydrated. Coronavirus screen: At this time, the client does not indicate any symptoms associated with coronavirus-19. Ebola Screen: No symptoms or risks identified at this time. Initial Sepsis Screen: Does the patient meet any 2 criteria? No. Patient's initial sepsis screen is negative. Does the patient have a suspected source of infection? No. Patient's initial sepsis screen is negative. Risk Assessment: Do you want to hurt yourself or someone else? Patient reports no desire to harm self or others. Onset of symptoms was June 02, 2022. 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 - Social history:: Smoking status: Patient denies any tobacco usage or history of. - Family history:: not pertinent. Screenin:58 [facility] ED Fall Risk Assessment (Adult) History of falling in the last 3 months, bb including since admission No falls in past 3 months (0 pts) Confusion or Disorientation No (0 pts) Intoxicated or Sedated No (0 pts) Impaired Gait No (0 pts) Score/Fall Risk Level 0 - 2 = Low Risk Oriented to surroundings. Abuse screen: Denies threats or abuse. Nutritional screening: No deficits noted. Tuberculosis screening: No symptoms or risk factors identified. Assessment: 05:58 General: Appears in no apparent distress. Behavior is calm, cooperative. Pain: bb Complains of pain in abdomen. Neuro: Level of Consciousness is awake, alert, obeys commands, Oriented to person, place, time, situation. Cardiovascular: Capillary refill < 3 seconds Patient's skin is warm and dry. Respiratory: Respiratory effort is even, unlabored, Respiratory pattern is regular. GI: Abdomen is round. Derm: Skin is pink, warm \T\ dry. Musculoskeletal: Circulation, motion, and sensation intact. 06:50 Reassessment: Patient is alert, oriented x 3, equal unlabored respirations, skin bb warm/dry/pink. IV site intact, patent with fluids infusing awaiting diagnostic results. 07:27 Reassessment: Patient is alert, oriented x 3, equal unlabored respirations, skin bb warm/dry/pink. pt verbalized understanding of and agrees to plan of care discharge instructions given pt ambulated with steady gait to exit. Vital Signs: 05:36 BP 119 / 86; Pulse 90; Resp 20; Temp 97.7; Pulse Ox 100% ; Weight 77.11 kg; Height 5 rv1 ft. 3 in. (160.02 cm); Pain 7/10; 06:53 BP 105 / 56; Pulse 80; Resp 18; Temp 97.6; Pulse Ox 100% ; rv1 05:36 Body Mass Index 30.11 (77.11 kg, 160.02 cm) rv1 ED Course: 05:02 Patient arrived in ED. [email or web address] 05:31 Orlando Marion MD is Attending Physician. [facility] 05:56 Radha Peña, RN is Primary Nurse. 05:57 Triage completed. 05:57 Arm band placed on Patient placed in an exam room, on a stretcher, on pulse oximetry. bb Family accompanied patient. 05:58 Patient has correct armband on for positive identification. Bed in low position. Call bb light in reach. Side rails up X 1. Adult w/ patient. Pulse ox on. NIBP on. 06:20 Initial lab(s) drawn, by me, sent to lab. Inserted saline lock: 20 gauge in left bb antecubital area, using aseptic technique. Blood collected. 06:35 CBC with Diff Sent. rv1 06:35 Comprehensive Metabolic Panel Sent. rv1 06:35 Lipase Sent. rv1 07:27 No provider procedures requiring assistance completed. IV discontinued, intact, bb bleeding controlled, No redness/swelling at site. Pressure dressing applied. Administered Medications: 06:20 Drug: NS 0.9% 1000 ml Route: IV; Rate: 1 bolus; Site: left antecubital; yadiel 07:28 Follow up: IV Status: Completed infusion; IV Intake: 850ml bb 06:20 Drug: Zofran (Ondansetron) 4 mg Route: IVP; Site: left antecubital; bb 07:28 Follow up: Response: No adverse reaction bb Medication: 05:58 VIS not applicable for this client. bb Intake: 07:28 IV: 850ml; Total: 850ml. bb Outcome: 07:15 Discharge ordered by . deon 07:28 Discharged to home ambulatory. yadiel 07: Condition: stable 07:28 Discharge instructions given to patient, Instructed on discharge instructions, follow up and referral plans. medication usage, Demonstrated understanding of instructions, follow-up care, medications, Prescriptions given X 3. 07:28 Patient left the ED. bb Signatures: Orlando Marion MD MD cha Ballard, Brenda, RN RN Josiane Delgado Rebecca rv1
--- NOTE | 2022-06-03 07:16 | EDPHYS ---
Physician Documentation [facility] Name: Sue Pike Age: 26 yrs Sex: Female : 1995 Arrival Date: 06/03/2022 Time: 05:02 Bed 24 Private MD: TY Physician Orlando Marion HPI: 06/03 07:10 This 26 yrs old Female presents to ER via Ambulatory with complaints of deon Nausea/Vomiting/Diarrhea. 07:10 The patient presents to the emergency department with nausea, vomiting, diarrhea, that deon is intermittent. Onset: The symptoms/episode began/occurred 1 day(s) ago. Possible causes: unknown. The symptoms are aggravated by nothing. The symptoms are alleviated by nothing. Associated signs and symptoms: Pertinent positives: abdominal pain, diarrhea, nausea, vomiting. Severity of symptoms: At their worst the symptoms were mild in the emergency department the symptoms are unchanged. The patient has not experienced similar symptoms in the past. 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 - Social history:: Smoking status: Patient denies any tobacco usage or history of. - Family history:: not pertinent. ROS: 07:10 Constitutional: Negative for fever, chills, and weight loss, Eyes: Negative for injury, deon pain, redness, and discharge, ENT: Negative for injury, pain, and discharge, Neck: Negative for injury, pain, and swelling, Cardiovascular: Negative for chest pain, palpitations, and edema, Respiratory: Negative for shortness of breath, cough, wheezing, and pleuritic chest pain, Back: Negative for injury and pain, : Negative for injury, bleeding, discharge, and swelling, MS/Extremity: Negative for injury and deformity, Skin: Negative for injury, rash, and discoloration, Neuro: Negative for headache, weakness, numbness, tingling, and seizure, Psych: Negative for depression, anxiety, suicide ideation, homicidal ideation, and hallucinations, Allergy/Immunology: Negative for hives, rash, and allergies, Endocrine: Negative for neck swelling, polydipsia, polyuria, polyphagia, and marked weight changes, Hematologic/Lymphatic: Negative for swollen nodes, abnormal bleeding, and unusual bruising. 07:10 Abdomen/GI: Positive for abdominal pain, nausea and vomiting, diarrhea. Exam: 07:10 Constitutional: This is a well developed, well nourished patient who is awake, alert, deon and in no acute distress. Head/Face: Normocephalic, atraumatic. Eyes: Pupils equal round and reactive to light, extra-ocular motions intact. Lids and lashes normal. Conjunctiva and sclera are non-icteric and not injected. Cornea within normal limits. Periorbital areas with no swelling, redness, or edema. ENT: Nares patent. No nasal discharge, no septal abnormalities noted. Tympanic membranes are normal and external auditory canals are clear. Oropharynx with no redness, swelling, or masses, exudates, or evidence of obstruction, uvula midline. Mucous membranes moist. Neck: Trachea midline, no thyromegaly or masses palpated, and no cervical lymphadenopathy. Supple, full range of motion without nuchal rigidity, or vertebral point tenderness. No Meningismus. Chest/axilla: Normal chest wall appearance and motion. Nontender with no deformity. No lesions are appreciated. Cardiovascular: Regular rate and rhythm with a normal S1 and S2. No gallops, murmurs, or rubs. Normal PMI, no JVD. No pulse deficits. Respiratory: Lungs have equal breath sounds bilaterally, clear to auscultation and percussion. No rales, rhonchi or wheezes noted. No increased work of breathing, no retractions or nasal flaring. Back: No spinal tenderness. No costovertebral tenderness. Full range of motion. Skin: Warm, dry with normal turgor. Normal color with no rashes, no lesions, and no evidence of cellulitis. MS/ Extremity: Pulses equal, no cyanosis. Neurovascular intact. Full, normal range of motion. Neuro: Awake and alert, GCS 15, oriented to person, place, time, and situation. Cranial nerves II-XII grossly intact. Motor strength 5/5 in all extremities. Sensory grossly intact. Cerebellar exam normal. Normal gait. Psych: Awake, alert, with orientation to person, place and time. Behavior, mood, and affect are within normal limits. 07:10 Abdomen/GI: Inspection: abdomen appears normal, Bowel sounds: normal, Palpation: abdomen is soft and non-tender, Liver: no appreciated palpable abnormalities, Hernia: not appreciated. Vital Signs: 05:36 BP 119 / 86; Pulse 90; Resp 20; Temp 97.7; Pulse Ox 100% ; Weight 77.11 kg; Height 5 rv1 ft. 3 in. (160.02 cm); Pain 7/10; 06:53 BP 105 / 56; Pulse 80; Resp 18; Temp 97.6; Pulse Ox 100% ; rv1 05:36 Body Mass Index 30.11 (77.11 kg, 160.02 cm) rv1 MDM: 05:31 Patient medically screened. [facility] 07:17 Differential diagnosis: Nonspecific abd pain, gastritis, cholecystitis, pancreatitis, deon appendicitis, diverticulitis, viral gastroenteritis, gastroenteritis. Data reviewed: vital signs, nurses notes, lab test result(s). 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 rate is 80 beats/min, rhythm is regular, Pulse oximetry: on room air is 100 %. Counseling: I had a detailed discussion with the patient and/or guardian regarding: the historical points, exam findings, and any diagnostic results supporting the discharge/admit diagnosis, lab results, the need for outpatient follow up, for definitive care, a family practitioner. 06/03 05:40 Order name: CBC with Diff [facility] 06/03 05:40 Order name: Comprehensive Metabolic Panel; Complete Time: 07:17 [facility] 06/03 05:40 Order name: Lipase; Complete Time: 07:17 [facility] 06/03 06:11 Order name: Urine Dipstick-Ancillary; Complete Time: 07:09 [facility] 06/03 06:11 Order name: Urine --Ancillary (enter results) 2 06/03 06:51 Order name: CBC Smear Scan [facility] 06/03 05:40 Order name: Urine Dipstick-Ancillary (obtain specimen); Complete Time: 05:59 [facility] 06/03 05:40 Order name: Urine Test (obtain specimen); Complete Time: 05:59 [facility] Administered Medications: 06:20 Drug: NS 0.9% 1000 ml Route: IV; Rate: 1 bolus; Site: left antecubital; bb 07:28 Follow up: IV Status: Completed infusion; IV Intake: 850ml bb 06:20 Drug: Zofran (Ondansetron) 4 mg Route: IVP; Site: left antecubital; bb 07:28 Follow up: Response: No adverse reaction bb Disposition Summary: 06/03/22 07:15 Discharge Ordered Location: Home [facility] Problem: new deon Symptoms: have improved deon Condition: Stable deon Diagnosis - Vomiting deon - Diarrhea, unspecified deon - Elevated white blood cell count deon Followup: deon - With: Private Physician - When: 2 - 3 days - Reason: Recheck today's complaints, Continuance of care, Re-evaluation by your physician Discharge Instructions: - Discharge Summary Sheet [facility] - Food Choices to Help Relieve Diarrhea, Adult deon - Diarrhea, Adult deon - Diarrhea, Adult, [id number] deon - Vomiting, Adult deon Forms: - Medication Reconciliation Form [facility] - Thank You Letter [facility] - Antibiotic Education deon - Prescription Opioid Use [facility] Prescriptions: - Zofran 4 mg Oral Tablet - take 1 tablet by ORAL route every 12 hours As needed; 20 tablet; Refills: 0, [facility] Product Selection Permitted - Cipro 500 mg Oral Tablet - take 1 tablet by ORAL route every 12 hours for 5 days; 10 tablet; Refills: 0, [facility] Product Selection Permitted - dicyclomine 20 mg Oral Tablet - take 1 tablet by ORAL route 4 times per day; 28 tablet; Refills: 0, Product [facility] Selection Permitted Signatures: Dispatcher [employer] Orlando Antonio MD MD cha Ballard, Brenda, RN RN bb
[2022-06-03 07:37] LABS: Blood Morphology Comment NOT SEEN (NOT SEEN); Platelet Estimate ADEQ; White Blood Cell Scan OK (OK)
[2022-06-03 07:46] VITALS: O2SAT 100
[2022-06-03 07:52] VITALS: BP 105/56; TEMP 97.6
[2022-06-03 08:03] LABS: Urine Specific Gravity/Preg 1.015 (1.005-1.030)
== END 2022-06-03 07:28 | disposition home or self-care (01) ==
LOC: ER 04:58
DX: R11.2 Nausea with vomiting, unspecified (principal); R19.7 Diarrhea, unspecified; D72.829 Elevated white blood cell count, unspecified
CPT/HCPCS: 85025; 36415; 81025; 81003; 83690; 80053; J7030; J2405; 96361; 96374; 99284

== ENCOUNTER 2022-12-31 19:55 | Emergency (ER) | payer BC, OTHER ==
[2022-12-31] MEDS ORDERED: TDAP (DIPHTH,PERTUSS(ACELL),TET VAC) 0.5 ML VIAL IMVAC ONE (21:15)
[2022-12-31] MEDS ORDERED: LIDOCAINE 1% MPF 5 ML VIAL ONE (21:15)
--- NOTE | 2022-12-31 21:50 | EDPHYS ---
Physician Documentation [facility] Name: Sue Pike Age: 27 yrs Sex: Female : 1995 Arrival Date: 12/31/2022 Time: 19:55 Bed 10 Private MD: ED Physician Hang Webster HPI: 12/31 20:59 This 27 yrs old Female presents to ER via Ambulatory with complaints of Laceration To snw Hand. 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 The laceration(s) is(are) located on the palmar aspect of proximal phalanx of left ring finger. Onset: The symptoms/episode began/occurred suddenly, just prior to arrival. Associated signs and symptoms: The patient has no apparent associated signs or symptoms. The patient has not experienced similar symptoms in the past. The patient has not recently seen a physician. Historical: - Allergies: 20:15 No Known Allergies; iw - Home Meds: 20:15 None [Active]; iw - PMHx: 20:15 None; iw - PSHx: 20:15 Appendectomy; iw ROS: 20:59 Constitutional: Negative for fever, chills, and weight loss, Eyes: Negative for injury, snw pain, redness, and discharge, ENT: Negative for injury, pain, and discharge, Neck: Negative for injury, pain, and swelling, Cardiovascular: Negative for chest pain, palpitations, and edema, Respiratory: Negative for shortness of breath, cough, wheezing, and pleuritic chest pain, Abdomen/GI: Negative for abdominal pain, nausea, vomiting, diarrhea, and constipation, Back: Negative for injury and pain, : Negative for injury, bleeding, discharge, and swelling, MS/Extremity: Negative for injury and deformity, Neuro: Negative for headache, weakness, numbness, tingling, and seizure, Psych: Negative for depression, anxiety, suicide ideation, homicidal ideation, and hallucinations. 20:59 Skin: Positive for laceration(s), of the palmar aspect of proximal phalanx of left ring finger. Exam: 20:58 Constitutional: This is a well developed, well nourished patient who is awake, alert, snw and in no acute distress. Head/Face: Normocephalic, atraumatic. Eyes: Pupils equal round and reactive to light, extra-ocular motions intact. Lids and lashes normal. Conjunctiva and sclera are non-icteric and not injected. Cornea within normal limits. Periorbital areas with no swelling, redness, or edema. Neck: Trachea midline, no thyromegaly or masses palpated, and no cervical lymphadenopathy. Supple, full range of motion without nuchal rigidity, or vertebral point tenderness. No Meningismus. Cardiovascular: Regular rate and rhythm with a normal S1 and S2. No gallops, murmurs, or rubs. Normal PMI, no JVD. No pulse deficits. Respiratory: Lungs have equal breath sounds bilaterally, clear to auscultation and percussion. No rales, rhonchi or wheezes noted. No increased work of breathing, no retractions or nasal flaring. Abdomen/GI: Soft, non-tender, with normal bowel sounds. No distension or tympany. No guarding or rebound. No evidence of tenderness throughout. Back: No spinal tenderness. No costovertebral tenderness. Full range of motion. MS/ Extremity: Pulses equal, no cyanosis. Neurovascular intact. Full, normal range of motion. Neuro: Awake and alert, GCS 15, oriented to person, place, time, and situation. Cranial nerves II-XII grossly intact. Motor strength 5/5 in all extremities. Sensory grossly intact. Cerebellar exam normal. Normal gait. Psych: Awake, alert, with orientation to person, place and time. Behavior, mood, and affect are within normal limits. 20:58 Skin: Appearance: normal except for affected area, injury, laceration(s), the wound is approximately 1.5 cm(s), with a depth of 1 cm(s), of the palmar aspect of proximal phalanx of left ring finger. Vital Signs: 20:14 BP 139 / 96; Pulse 96; Resp 16; Temp 98.4; Pulse Ox 98% on R/A; Weight 81.65 kg; Height iw 5 ft. 3 in. ; 22:00 BP 124 / 84; Pulse 88; Resp 16; Pulse Ox 98% ; vc1 20:14 Body Mass Index 31.89 (81.65 kg, 160.02 cm) iw Laceration: 21:52 Wound Repair of 2cm ( 0.8in ) subcutaneous laceration to palmar aspect of proximal snw phalanx of left ring finger. Linear shaped.. Distal neuro/vascular/tendon intact. Anesthesia: Digital block administered with 4 mls of 1% lidocaine. Wound prep: Extensive cleansing with betadine with hibiclenz by nurse. Skin closed with 3 5-0 Prolene using simple sutures and sterile technique. Dressed with non-adherent dressing. Patient tolerated well. MDM: 20:30 Patient medically screened. snw 21:51 Differential diagnosis: superficial laceration, vascular injury. Data reviewed: vital snw signs, nurses notes. Counseling: I had a detailed discussion with the patient and/or guardian regarding: the historical points, exam findings, and any diagnostic results supporting the discharge/admit diagnosis, the presence of at least one elevated blood pressure reading (>120/80) during this emergency department visit, the need for outpatient follow up, for definitive care, to return to the emergency department if symptoms worsen or persist or if there are any questions or concerns that arise at home. Response to treatment: the patient's symptoms have resolved after treatment. Special discussion: I discussed in detail with the patient the higher chance of wound infection based on his presenting history. Based on the history and exam findings, there is no indication for further emergent testing or inpatient evaluation. I discussed with the patient/guardian the need to see the primary care provider for further evaluation of the symptoms. 12/31 20:52 Order name: Suture Tray at Bedside; Complete Time: 21:45 snw 12/31 20:52 Order name: Wound Care; Complete Time: 21:51 snw 12/31 20:52 Order name: Wound dressing; Complete Time: 21:51 snw Administered Medications: 21:24 Drug: Boostrix Tdap IM 0.5 ml Route: IM; Site: right deltoid; vc1 21:51 Follow up: Response: (VIS) Vaccine information sheet provided today. Questions and/or vc1 concerns addressed. VIS edition date: Jan 04, 2021.; No adverse reaction 21:44 Drug: Lidocaine Infiltration (1 %) 1 vials {Note: Administered by Arely.} Volume: 5 vc1 ml; Route: Infiltration; 21:45 Drug: Hibiclens Topical Liquid 4 % 1 application Route: Topical; Site: affected area; vc1 Disposition: 01/01 02:11 Co-signature as Attending Physician, Hang Webster MD I reviewed the patient's care rt provided by the Advanced Practice Provider and agree with the diagnosis and treatment plan. Disposition Summary: 12/31/22 21:49 Discharge Ordered Location: Home snw Condition: Stable snw Diagnosis - Laceration without foreign body of left ring finger without damage to nail snw Followup: snw - With: Emergency Department - When: As needed - Reason: Worsening of condition Followup: snw - With: Private Physician - When: As needed - Reason: Discharge Instructions: - Discharge Summary Sheet snw - Laceration Care, Adult snw - Suture Removal, Care After snw - Sutured Wound Care snw Forms: - Medication Reconciliation Form snw - Thank You Letter snw - Antibiotic Education snw - Prescription Opioid Use snw - Patient Portal Instructions snw Signatures: Arely Arriola FNP-C GRAVE DIGGER-Csnw Morena Costa RN RN iw Anneliese Wilson RN RN vc1 Hang Webster MD MD rt
--- NOTE | 2022-12-31 21:50 | ER ---
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 iw Coronavirus screen: At this time, the client does not indicate any symptoms associated with coronavirus-19. Ebola Screen: Patient negative for fever greater than or equal to 101.5 degrees Fahrenheit, and additional compatible Ebola Virus Disease symptoms Patient denies exposure to infectious person. Patient denies travel to an Ebola-affected area in the 21 days before illness onset. No symptoms or risks identified at this time. Complicating Factors: There are no complicating factors for this patient. Initial Sepsis Screen: Does the patient meet any 2 criteria? No. Patient's initial sepsis screen is negative. Does the patient have a suspected source of infection? No. Patient's initial sepsis screen is negative. Risk Assessment: Do you want to hurt yourself or someone else? Patient reports no desire to harm self or others. Onset of symptoms was December 31, 2022. 20:14 Method Of Arrival: Ambulatory iw 20:14 Acuity: CINDY 4 iw Historical: - Allergies: 20:15 No Known Allergies; iw - Home Meds: 20:15 None [Active]; iw - PMHx: 20:15 None; iw - PSHx: 20:15 Appendectomy; iw Screenin:30 [facility] ED Fall Risk Assessment (Adult) History of falling in the last 3 months, vc1 including since admission No falls in past 3 months (0 pts) Confusion or Disorientation No (0 pts) Intoxicated or Sedated No (0 pts) Impaired Gait No (0 pts) Mobility Assist Device Used No (0 pt) Altered Elimination No (0 pt) Score/Fall Risk Level 0 - 2 = Low Risk Oriented to surroundings, Maintained a safe environment, Assessed \T\ reinforced patient's understanding of fall precautions. Abuse screen: Denies threats or abuse. Nutritional screening: No deficits noted. Tuberculosis screening: No symptoms or risk factors identified. Assessment: 21:30 General: Appears in no apparent distress. uncomfortable, Behavior is anxious. Pain: vc1 Complains of pain in palmar aspect of proximal phalanx of left ring finger Pain does not radiate. Neuro: Level of Consciousness is awake, alert, obeys commands, Oriented to person, place, time, situation, none. Cardiovascular: No deficits noted. Respiratory: Airway is patent Respiratory effort is even, unlabored, Respiratory pattern is regular, symmetrical. GI: No deficits noted. No signs and/or symptoms were reported involving the gastrointestinal system. : No deficits noted. No signs and/or symptoms were reported regarding the genitourinary system. EENT: No deficits noted. No signs and/or symptoms were reported regarding the EENT system. Derm: Wound noted palmar aspect of proximal phalanx of left ring finger. Musculoskeletal: Reports pain in palmar aspect of proximal phalanx of left ring finger. Injury Description: Laceration sustained to palmar aspect of proximal phalanx of left ring finger is contaminated, 0.5 to 2.5 cm long, not bleeding. Vital Signs: 20:14 BP 139 / 96; Pulse 96; Resp 16; Temp 98.4; Pulse Ox 98% on R/A; Weight 81.65 kg; Height iw 5 ft. 3 in. ; 22:00 BP 124 / 84; Pulse 88; Resp 16; Pulse Ox 98% ; vc1 20:14 Body Mass Index 31.89 (81.65 kg, 160.02 cm) iw ED Course: 19:59 Patient arrived in ED. am2 20:15 Triage completed. iw 20:15 Arm band placed on. iw 20:17 Arely Arriola FNP-C is PHCP. snw 20:17 Hang Webster MD is Attending Physician. snw 22:00 Assist provider with laceration repair on palmar aspect of proximal phalanx of left vc1 ring finger that was 2.5 cm. or less using sutures. Set up tray. Performed by Arely AMAYA Dressed with Neosporin, non stick gauze, kerlix. Patient did not have IV access during this emergency room visit. 22:09 Anneliese Wilson RN is Primary Nurse. vc1 Administered Medications: 21:24 Drug: Boostrix Tdap IM 0.5 ml Route: IM; Site: right deltoid; vc1 21:51 Follow up: Response: (VIS) Vaccine information sheet provided today. Questions and/or vc1 concerns addressed. VIS edition date: Jan 04, 2021.; No adverse reaction 21:44 Drug: Lidocaine Infiltration (1 %) 1 vials {Note: Administered by Arely.} Volume: 5 vc1 ml; Route: Infiltration; 21:45 Drug: Hibiclens Topical Liquid 4 % 1 application Route: Topical; Site: affected area; vc1 Medication: 22:12 VIS not applicable for this client. vc1 Outcome: 21:49 Discharge ordered by . yoandy 22:12 Discharged to home ambulatory. vc1 22:12 Condition: good 22:12 Discharge instructions given to patient, Instructed on discharge instructions, follow up and referral plans. wound care, Demonstrated understanding of instructions, follow-up care, wound care. 22:12 Patient left the ED. vc1 Signatures: Arely Arriola, PRODUCTION RECORDER-C PRODUCTION RECORDER-Csnw Morena Costa RN Paige Melendrez Vanessa, RN RN vc1 Corrections: (The following items were deleted from the chart) 21:45 21:44 Lidocaine Infiltration (1 %) 1 vials 5 ml Infiltration vc1 vc1
[2022-12-31 22:17] VITALS: TEMP 98.4; O2SAT 98
[2022-12-31 22:18] VITALS: BP 124/84
== END 2022-12-31 22:12 | disposition home or self-care (01) ==
LOC: ER 19:55
PROC: 0HQGXZZ Repair Left Hand Skin, External Approach (ICD-10-PCS; principal; 2022-12-31)
DX: S61.215A Laceration without foreign body of left ring finger without damage to nail, initial encounter (principal)
CPT/HCPCS: 12001; J2001

== ENCOUNTER 2023-01-12 18:33 | Emergency (ER) | payer BC, OTHER ==
--- NOTE | 2023-01-12 18:50 | EDPHYS ---
Physician Documentation [facility] Name: Sue Pike Age: 27 yrs Sex: Female : 1995 Arrival Date: 01/12/2023 Time: 18:33 Bed Waiting Private MD: ED Physician Orlando Marion HPI: 01/12 22:45 This 27 yrs old Female presents to ER via Ambulatory with complaints of Suture Removal. kb 22:45 The patient has sutures on the left ring finger. Previous treatment: The patient was kb initially treated 12 day(s) ago, the care was rendered at [facility]. Sutures/eldon progress: The patient has no c/o's. The wound is well-healing with no redness, swelling, discharge, or dehiscence reported. The patient has not experienced similar symptoms in the past. The patient has not recently seen a physician. Historical: - Allergies: 19:04 No Known Allergies; ph - PSHx: 19:04 Appendectomy; ph - Immunization history:: Adult Immunizations up to date. - Social history:: Smoking status: unknown. ROS: 22:44 Constitutional: Negative for fever, chills, and weight loss. kb 22:44 Skin: Positive for of the left ring finger, sutures in place. 22:44 All other systems are negative. Exam: 22:44 Constitutional: This is a well developed, well nourished patient who is awake, alert, kb and in no acute distress. Head/Face: Normocephalic, atraumatic. ENT: Moist Mucous membranes Respiratory: Respirations even and unlabored. No increased work of breathing. Talking in full sentences MS/ Extremity: Pulses equal, no cyanosis. Neurovascular intact. Full, normal range of motion. Neuro: Awake and alert, GCS 15, oriented to person, place, time, and situation. Moves all extremities. Normal gait. 22:44 Skin: Wound recheck: Suture laceration closure: the wound is healing well, the edges are well approximated, no evidence of dehiscence, no drainage, no erythema, no swelling. Vital Signs: 19:03 BP 118 / 79; Pulse 84; Resp 18; Temp 97.9; Pulse Ox 99% on R/A; ph Procedures: 18:53 Suture/Staple removal: Removed 3 sutures, from left ring finger, site appears well kb healed, Patient tolerated well. MDM: 18:42 Patient medically screened. kb 22:45 Data reviewed: vital signs, nurses notes. Counseling: I had a detailed discussion with kb the patient and/or guardian regarding: the historical points, exam findings, and any diagnostic results supporting the discharge/admit diagnosis, the need for outpatient follow up, a family practitioner, to return to the emergency department if symptoms worsen or persist or if there are any questions or concerns that arise at home. Administered Medications: No medications were administered Disposition Summary: 01/12/23 18:49 Discharge Ordered Location: Home kb Condition: Stable kb Diagnosis - Encounter for removal of sutures kb Followup: kb - With: Emergency Department - When: As needed - Reason: Worsening of condition Followup: kb - With: Private Physician - When: 2 - 3 days - Reason: Recheck today's complaints, Continuance of care, Re-evaluation by your physician Discharge Instructions: - Discharge Summary Sheet kb - Suture Removal, Care After kb Forms: - Medication Reconciliation Form kb - Thank You Letter kb - Antibiotic Education kb - Prescription Opioid Use kb - Patient Portal Instructions kb - Leadership Thank You Letter kb Signatures: Laila Sellers, JAS-C JAS-Aniyah Burch, RN RN ph
--- NOTE | 2023-01-12 19:06 | ER ---
Nurse's Notes [facility] Name: Sue Pike Age: 27 yrs Sex: Female : 1995 Arrival Date: 01/12/2023 Time: 18:33 Bed Waiting Private MD: Diagnosis: Encounter for removal of sutures Presentation: 01/12 19:03 Chief complaint: Patient states: Here for suture removal, sutures to L ring finger. ph Coronavirus screen: Vaccine status: Patient reports being unvaccinated. Ebola Screen: No symptoms or risks identified at this time. Initial Sepsis Screen: Does the patient meet any 2 criteria? No. Patient's initial sepsis screen is negative. Does the patient have a suspected source of infection? No. Patient's initial sepsis screen is negative. Risk Assessment: Do you want to hurt yourself or someone else? Patient reports no desire to harm self or others. Onset of symptoms was January 12, 2023. 19:03 Method Of Arrival: Ambulatory ph 19:03 Acuity: CINDY 5 ph Triage Assessment: 19:05 General: ERP in triage to remove sutures. ph Historical: - Allergies: 19:04 No Known Allergies; ph - PSHx: 19:04 Appendectomy; ph - Immunization history:: Adult Immunizations up to date. - Social history:: Smoking status: unknown. Screenin:04 [facility] ED Fall Risk Assessment (Adult) History of falling in the last 3 months, ph including since admission No falls in past 3 months (0 pts). Abuse screen: Denies threats or abuse. Denies injuries from another. Nutritional screening: No deficits noted. Tuberculosis screening: No symptoms or risk factors identified. Vital Signs: 19:03 BP 118 / 79; Pulse 84; Resp 18; Temp 97.9; Pulse Ox 99% on R/A; ph ED Course: 18:35 Patient arrived in ED. mg5 18:42 [facility]ellers [facility] kb 18:42 Orlando Marion MD is Attending Physician. kb 19:02 Aniyah Maier RN is Primary Nurse. ph 19:04 Triage completed. ph 19:04 Arm band placed on. ph 19:04 Patient has correct armband on for positive identification. ph 19:04 No provider procedures requiring assistance completed. Patient did not have IV access ph during this emergency room visit. Administered Medications: No medications were administered Medication: 19:04 VIS not applicable for this client. ph Outcome: 18:49 Discharge ordered by . cris 19:04 Discharged to home ambulatory. ph 19:04 Condition: good 19:04 Discharge instructions given to patient, Instructed on discharge instructions, follow up and referral plans. 19:05 Patient left the ED. ph Signatures: Laila Sellers FNP-C FNP-Ckb Hall, Patricia, RN RN ph Namrata Bass mg5
[2023-01-12 19:25] VITALS: BP 118/79; TEMP 97.9; O2SAT 99
== END 2023-01-12 19:05 | disposition home or self-care (01) ==
LOC: ER 18:33
DX: Z48.02 Encounter for removal of sutures (principal)
CPT/HCPCS: 99282

== ENCOUNTER 2023-10-04 13:14 | Emergency (ER) | payer BC, OTHER ==
[2023-10-04] MEDS ORDERED: BUPIVACAINE 0.25% PF 10 ML VIAL ONE (13:48)
[2023-10-04] MEDS ORDERED: LIDOCAINE 1% MPF 5 ML VIAL ONE (13:48)
--- NOTE | 2023-10-04 14:55 | EDPHYS ---
Physician Documentation [facility] Name: Sue Pike Age: 27 yrs Sex: Female : 1995 Arrival Date: 10/04/2023 Time: 13:14 Bed 14 Private MD: ED Physician Orlando Marion HPI: 10/03 17:13 This 27 yrs old Female presents to ER via Wheelchair with complaints of Ingrown toe sb4 nail. 17:13 ingrown toenail right big toe for several weeks now. started getting swollen, red, with sb4 discharge yesterday. reports history of ingrown toenails but never this bad. no other associated signs and symptoms, no fever. no chronic medical issues. 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 - Infectious Disease History:: Denies. - Social history:: Smoking status: Patient denies any tobacco usage or history of. ROS: 17:13 Constitutional: Negative for fever, chills, and weight loss, sb4 17:13 Skin: Positive for per HPI, Exam: 17:13 Constitutional: This is a well developed, well nourished patient who is awake, alert, sb4 and in no acute distress. Head/Face: Normocephalic, atraumatic. Eyes: Extra-ocular motions intact. Periorbital areas with no swelling, redness, or edema. ENT: Mucous membranes moist. 17:13 Skin: ingrown nail medially right big toe with minimal purulence and surrounding cellulitis. Vital Signs: 13:23 BP 133 / 87; Pulse 85; Resp 16; Temp 98.3(O); Pulse Ox 100% ; Weight 86.18 kg; Height 5 ll1 ft. 3 in. ; Pain 7/10; 13:30 BP 124 / 82; Pulse 88; Resp 16; Pulse Ox 95% on R/A; me1 14:30 BP 123 / 79; Pulse 72; Resp 20; Temp 99(O); me1 13:23 Body Mass Index 33.66 (86.18 kg, 160.02 cm) ll1 13:23 Pain Scale: Adult ll1 Procedures: 17:13 Nerve block: (digital) of right first toe Medication: Lidocaine 1% without epinephrine sb4 Marcaine 0.5%, Amount: 6 mls were injected, Effect: the patient's symptoms are improved, moderately, Set up for procedure. Performed by Mila Salgado PA-C Patient tolerated well. using forceps and curved scissors, I was able to dislodge ingrown toenail and trim excess nail. MDM: 13:30 Patient medically screened. sb4 17:17 Data reviewed: vital signs, nurses notes, and as a result, I will discharge patient. 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 Administered Medications: 14:43 Drug: Bupivacaine Infiltration (0.25 %) 5 ml Infiltration once {Note: Administered [place] [facility] [place]. Angely} Route: Infiltration; 15:07 Follow up: Response: No adverse reaction; Pain is decreased [facility] [place] 14:44 Drug: Lidocaine Infiltration (1 %) 5 ml 5 ml Infiltration once; to bedside {Note: fl1 Administered by PA. Angely} Volume: 5 ml; Route: Infiltration; 15:07 Follow up: Response: No adverse reaction; Pain is decreased [facility] [place]position Summary: 10/04/23 14:55 Discharge Ordered Notes: Location: Home sb4 Problem: an ongoing problem sb4 Symptoms: have improved sb4 Condition: Stable sb4 Diagnosis - ingrown toenail, right great toe sb4 - Cellulitis of right toe sb4 Followup: sb4 - With: Te Diop DPM - When: 1 week - Reason: Recheck today's complaints, Re-evaluation by your physician Discharge Instructions: - Discharge Summary Sheet sb4 - Cellulitis, Adult sb4 - Ingrown Toenail sb4 Forms: - Antibiotic Education sb4 - Patient Portal Instructions sb4 - Leadership Thank You Letter sb4 Prescriptions: - Cephalexin 500 mg Oral Capsule - take 1 capsule ORAL route every 8 hours for 10 days; 30 capsule; Refills: 0, sb4 Product Selection Permitted Signatures: Maame Mathias RN RN ll1 Mila Salgado PA-C PA-C sb4 Callie Macdonald RN RN me1
--- NOTE | 2023-10-04 14:55 | ER ---
Nurse's Notes [facility] Name: Sue Pike Age: 27 yrs Sex: Female : 1995 Arrival Date: 10/04/2023 Time: 13:14 Bed 14 Private MD: Diagnosis: ingrown toenail, right great toe;Cellulitis of right toe Presentation: 10/03 13:23 Chief complaint: Patient states: R foot 1st digit redness, pain, swelling to nail area ll1 for 3 weeks. No fever. Coronavirus screen: Client denies travel out of the [place] in the last 14 days. At this time, the client does not indicate any symptoms associated with coronavirus-19. Ebola Screen: Patient denies travel to an Ebola-affected area in the 21 days before illness onset. Initial Sepsis Screen: Does the patient meet any 2 criteria? No. Patient's initial sepsis screen is negative. Does the patient have a suspected source of infection? No. Patient's initial sepsis screen is negative. Risk Assessment: Do you want to hurt yourself or someone else? Patient reports no desire to harm self or others. Onset of symptoms was September 13, 2023. 13:23 Method Of Arrival: Wheelchair ll1 13:23 Acuity: CINDY 4 ll1 Triage Assessment: 13:24 General: Appears uncomfortable, Behavior is calm, cooperative, appropriate for age. ll1 Pain: Complains of pain in left foot Pain currently is 7 out of 10 on a pain scale. Quality of pain is described as aching. Derm: Abscess located on left foot is paronychia Reports pain. Musculoskeletal: Circulation, motion, and sensation intact. Capillary refill < 3 seconds, Swelling present in L foot 1st digit. 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 - Infectious Disease History:: Denies. - Social history:: Smoking status: Patient denies any tobacco usage or history of. Screenin:30 [facility] ED Fall Risk Assessment (Adult) History of falling in the last 3 months, me1 including since admission No falls in past 3 months (0 pts) Confusion or Disorientation No (0 pts) Intoxicated or Sedated No (0 pts) Impaired Gait No (0 pts) Mobility Assist Device Used No (0 pt) Altered Elimination No (0 pt) Score/Fall Risk Level 0 - 2 = Low Risk Maintained a safe environment, Provided non-skid footwear, Hourly rounding (assess needs \T\ fall precautionary measures) done. Abuse screen: Denies threats or abuse. Nutritional screening: No deficits noted. Tuberculosis screening: No symptoms or risk factors identified. Assessment: 13:30 General: Appears uncomfortable, well groomed, well developed, well nourished, Behavior me1 is calm, cooperative, appropriate for age, Reports R foot 1st digit redness, pain, swelling to nail area for 3 weeks. No fever. Pain: Complains of pain in Right first toenail Pain does not radiate. Pain currently is 5 out of 10 on a pain scale. Quality of pain is described as tender, Pain began gradually, 3 weeks Is continuous. Neuro: Level of Consciousness is awake, alert, obeys commands, Oriented to person, place, time, situation, Appropriate for age. Cardiovascular: Capillary refill < 3 seconds Patient's skin is warm and dry. Respiratory: Airway is patent Respiratory effort is even, unlabored, Respiratory pattern is regular, symmetrical. GI: No signs and/or symptoms were reported involving the gastrointestinal system. : No signs and/or symptoms were reported regarding the genitourinary system. EENT: No signs and/or symptoms were reported regarding the EENT system. Derm: Skin is healthy with good turgor, Skin is pink, warm \T\ dry. red, swollen right great toe. Musculoskeletal: No signs and/or symptoms reported regarding the musculoskeletal system. Vital Signs: 13:23 BP 133 / 87; Pulse 85; Resp 16; Temp 98.3(O); Pulse Ox 100% ; Weight 86.18 kg; Height 5 ll1 ft. 3 in. ; Pain 7/10; 13:30 BP 124 / 82; Pulse 88; Resp 16; Pulse Ox 95% on R/A; me1 14:30 BP 123 / 79; Pulse 72; Resp 20; Temp 99(O); me1 13:23 Body Mass Index 33.66 (86.18 kg, 160.02 cm) ll1 13:23 Pain Scale: Adult 1 ED Course: 13:17 Patient arrived in ED. nj1 13:23 Arm band placed on Patient placed in an exam room, on a stretcher. ll1 13:24 Triage completed. ll1 13:29 Callie Macdonald, RN is Primary Nurse. me1 13:30 Mila Salgado PA-C is PHCP. sb4 13:30 Orlando Marion MD is Attending Physician. sb4 13:30 Patient has correct armband on for positive identification. Bed in low position. Call me1 light in reach. Side rails up X2. Provided Education on: POC. Verbalized understanding. . Client placed on continuous cardiac and pulse oximetry monitoring. NIBP monitoring applied. Pulse ox on. NIBP on. 13:30 No provider procedures requiring assistance completed. me1 14:55 Te Diop DPM is Referral Physician. sb4 15:04 Patient did not have IV access during this emergency room visit. me1 Administered Medications: 14:43 Drug: Bupivacaine Infiltration (0.25 %) 5 ml Infiltration once {Note: Administered by me1 PA. Angely} Route: Infiltration; 15:07 Follow up: Response: No adverse reaction; Pain is decreased me1 14:44 Drug: Lidocaine Infiltration (1 %) 5 ml 5 ml Infiltration once; to bedside {Note: me1 Administered by PA. Angely} Volume: 5 ml; Route: Infiltration; 15:07 Follow up: Response: No adverse reaction; Pain is decreased me1 Medication: 13:30 VIS not applicable for this client. me1 Outcome: 14:55 Discharge ordered by . sb4 15:04 Discharged to home ambulatory, me1 15:04 Condition: stable 15:04 Discharge instructions given to patient, Instructed on discharge instructions, follow up and referral plans. medication usage, Demonstrated understanding of instructions, follow-up care, medications, Prescriptions given X 1, 15:08 Patient left the ED. me1 Signatures: Maame Mathias RN RN 1 Mila Salgado PA-C PA-C sb4 Shanice Doshi RN RN nj1 Callie Macdonald, RN RN nj1 Corrections: (The following items were deleted from the chart) 13:30 13:23 Chief complaint: Patient states: R foot 1st digit redness, pain, swelling to nail me1 area for 3 weeks. No fever ll1
[2023-10-04 16:02] VITALS: BP 123/79; TEMP 99; O2SAT 95
== END 2023-10-04 15:08 | disposition home or self-care (01) ==
LOC: ER 13:14
DX: L60.0 Ingrowing nail (principal); L03.031 Cellulitis of right toe
CPT/HCPCS: 64450; 99284; J2001